=== PATIENT | male | born 1960 | race Caucasian/White ===

== ENCOUNTER 2024-11-20 22:58 | Inpatient (IN) | payer OTHER, SELFPAY ==
[2024-11-20] VITALS (8 sets, daily range): BP systolic 140–163; BP diastolic 97–108; BMI 26.7
[2024-11-20 21:09] LABS: % Basophils 1.2 % (0-2); % Eosinophils 2.9 % (0-6); % Immature Granulocytes 0.2 % (0-0.5); % Lymphocytes 26.2 % (20.5-51.1); % Monocytes 9.8 % (1.7-9.3); % Neutrophils 59.7 % (42.2-75.2); Absolute Basophils 0.1 10^3/uL (0-0.2); Absolute Eosinophils 0.2 10^3/uL (0-0.7); Absolute Lymphocytes 2.2 10^3/uL (1.2-3.4); Absolute Monocytes 0.8 10^3/uL (0.1-0.6); Hematocrit 43.7 % (39.0-52.0); Hemoglobin 14.4 g/dL (13.0-18.0); Mean Corpuscular Hgb 30.8 pg (27.0-31.0); Mean Corpuscular Volume 93.6 fL (80.0-94.0); Mean Platelet Volume 9.5 fL (7.4-10.4); Nucleated Red Blood Cells % 0 % (-); Platelet Count 232 10^3/uL (130-400); Red Blood Cell Count 4.67 10^6/uL (4.70-6.10); Red Cell Dist. Width 14.9 % (11.5-14.5); White Blood Cell Count 8.4 10^3/uL (4.8-10.8)
[2024-11-20 21:26] LABS: ALT (SGPT) 55 U/L (0-50); AST (SGOT) 38 U/L (17-59); Albumin 3.7 g/dl (3.5-5.0); Alkaline Phosphatase 130 U/L (38-126); Blood Urea Nitrogen 33 mg/dl (9-20); Calcium 8.9 mg/dl (8.4-10.2); Carbon Dioxide 19 mmol/L (22-30); Chloride 111 mmol/L (98-107); Estimated Creatinine Clearance 54 ml/min; Glucose 139 mg/dl (70-99); Sodium 139 mmol/L (135-145); Total Bilirubin 0.8 mg/dl (0.2-1.3); Total Protein 6.3 g/dl (6.3-8.2); eGFR 56.48
[2024-11-20 21:33] LABS: NT-proBNP 5990 pg/ml
[2024-11-20] MEDS: NITROSTAT (SUBLINGUAL) 0.4 MG SL (21:42)
[2024-11-20] MEDS: LASIX 40 MG IV (21:43)
--- NOTE | 2024-11-20 22:20 | ED.GENMED ---
History of Present Illness
General
Chief Complaint: Swelling
Source: patient
Time Seen by Provider: 11/20/24 20:32
History of Present Illness
History of Present Illness:
64-year-old male with a history of DVT, hypertension who presents with significant lower extremity swelling. Patient states that has been progressive over last few weeks but is been feel little short of breath as well. He does admit that with
exertion he is felt short of breath. Admits that he has not taken his blood pressure medications in several years. He states his blood pressure was the same whether he took it or did not take it so he just stopped it. In addition, he had a
history of a DVT and stopped taking a blood thinner. Patient admits that he really has not seen his doctor in some time either. He does smoke. He recently got a call back to work. Patient states his legs are hurting because how swollen they are
Past History
Past History
ED Past Medical History: GERD, HTN, Psychiatric (Anxiety) and Other (DVT, cataracts)
ED Past Surgical History: None
Social History
Tobacco: Smoker
Alcohol: Daily
Drug: None
Living: with family
Phy Exam
Physical Exam
Physical Exam:
CONSTITUTIONAL Patient alert and oriented to person, place and time. Well-appearing. Vital signs reviewed.
HEAD atraumatic, normocephalic.
EYES eyelids normal to inspection, Extraocular muscles intact, Conjunctiva normal, Sclera normal.
NECK normal range of motion, Trachea midline, no jugular venous distention.
RESPIRATORY CHEST No respiratory distress noted, Chest expansion equal, Bilateral breath sounds clear.
CARDIOVASCULAR regular and tachycardic, Heart sounds normal.
ABDOMEN abdomen nontender, Bowel sounds normal. No distention.
BACK normal inspection, no obvious deformities
UPPER EXTREMITY range of motion normal, Motor strength normal, no cyanosis, no edema.
LOWER EXTREMITY range of motion normal, Motor strength normal, no cyanosis, significant edema to the mid thigh bilaterally. Right slightly greater than left
NEURO Speech normal, No focal motor deficits, [place] coma scale 15, Memory normal, Cranial Nerves intact to screening exam.
SKIN skin warm, dry, and normal in color.
Scores
Heart Failure Risk
Heart Failure Risk Score: Yes
History of Stroke or TIA: No
History of intubation for respiratory distress: No
Heart rate on ED arrival >/= 110: No
SaO2 <90% on arrival on room air: No
HR >/=110 during 3min walk test (or too ill to perform test): Yes
ECG has acute ischemic changes: No
Urea >/=12mmol/L (BUN 33.6mg/dL): No
Serum CO2>/=35mmol/L: No
Troponin I or T elevated to AR Level (0.4mg/dL): No
NT-proBNP >/=5,000ng/L (5,000pg/ml): Yes
HF Risk Score: 3
Admission Status: HIGH RISK 15.9% Consider SNF treatment or admission to hospital
Course
Orders/Labs/Results
Orders:
Orders
11/20/24 20:15
Electrocardiogram (*1) Urgent
Reason for Study: Shortness of Breath
EKG- Treatment ONCE
11/20/24 20:53
CR Chest - 2 Views Urgent
Comment:
Reason For Exam: sob, LE edema
11/20/24 20:57
Complete Blood Count/With Diff Urgent
Comprehensive Metabolic Panel Urgent
Pro-BNP [NT-proBNP] Urgent
Troponin I Urgent
11/20/24 21:37
Furosemide [Lasix] 40 mg IV NOW STA
Nitroglycerin Sublingual [Nitrostat (Sublingual)] 0.4 mg SL NOW STA
11/20/24 22:17
Nitroglycerin 100 mg/250 ml [Nitroglycerin Premix] 100 mg in 250 ml IV NOW
Initial dose in mcg/min, then titrate:: 20
Titrate to keep:: SBP < 160 mmHg
Titrate by mcg/min:: 5 mcg/min, may increase by 10 mcg/min if dose > 20 mcg/min
Frequency of titrations (minutes):: every 3-5 minutes
Maximum dose in mcg/min:: 200
Begin to taper infusion when:: Remained at goal for 2hrs
Taper by mcg/min:: 5 mcg/min
Frequency of taper (minutes) if patient maintains goal:: 30
Taper to off?: Yes
If infusion off & no longer maintaining goal:: Contact Provider
11/20/24 22:30
US Periph Venous LOWER Ext Ezequiel Urgent
Comment:
Reason For Exam: LE edema, h/o DVT off meds
11/20/24 22:48
Admit/Transfer Patient As Directed
Co-Sign Provider:
Level of Care: Inpatient admission
Assign to:: IVU
Physician / Group: aguila
Diagnosis: acute chf exacerbation
Reason for Hospitalization: acute chf exacerbation
Expected length of stay greater than two midnights?: Yes
ELOS- Estimated Length of Stay in days: 2
I certify the patient meets the requirements for IP care: Yes
PRN Pain Medication Management As Directed
May give lesser potent ordered pain med per pt: Yes
preference::
Protocol:: Medication orders for pain may be administered in a
manner that supports deferring to patient preference
when the pt is:
- Requesting an ordered lesser potent pain medication.
Least to most potent pain medications are defined
as: acetaminophen < NSAID < tramadol < opioids
(morphine, oxycodone, hydromorphone).
- Requesting a lesser dose of the same medication IF
ORDERED.
- Requesting a less intrusive route of administration
if both routes are prescribed by the provider (PO <
IV).
11/20/24 22:49
Code Status As Directed
Resuscitation Status: Full Code
11/20/24 23:00
Flush (0.9% Sodium Chloride) [Flush (Nss)] See Dose Instructions IV PER PROTOCOL
11/21/24 01:40
Echo 2D MMode Color/Doppler Routine
Reason for Study: chf
CARDIOLOGY CONSULT Routine
Consulting Provider: Javed Loomis
Was physician already notified: No
Reason for consult: chf
Consult Notification Routine
Specialty to Notify: Cardiology
Date consulting provider notified: 11/21/24
Time consulting provider notified: 07:10
Notified:: Provider
Activity As Directed
Activity Level: As Tolerated
Vital Signs As Directed
Frequency: Per unit guidelines
DX Deep Vein Thrombosis Video Routine
11/21/24 03:35
Complete Blood Count/With Diff IN AM
Comprehensive Metabolic Panel IN AM
D-Dimer Routine
Troponin I Q6H
11/21/24 Breakfast
Cholesterol Lowering
At Your Request: Full Participation
Cholesterol Lowering: Sodium, 2 Gram
11/21/24 07:29
Troponin I Q6H
11/21/24 08:00
Furosemide [Lasix] 40 mg IV DAILY
11/21/24 16:47
Troponin I Q6H
11/21/24 22:34
Troponin I Q6H
Abnormal Lab Results
11/20/24
20:57
RBC 4.67 L 10^6/uL
(4.70-6.10)
RDW 14.9 H %
(11.5-14.5)
Absolute Monos (auto) 0.8 H 10^3/uL
(0.1-0.6)
Monocytes % 9.8 H %
(1.7-9.3)
Chloride 111 H mmol/L
(98-107)
Carbon Dioxide 19 L mmol/L
(22-30)
BUN 33 H mg/dl
(9-20)
Creatinine 1.4 H mg/dL
(0.7-1.3)
Glucose 139 H mg/dl
(70-99)
ALT 55 H U/L
(0-50)
Alkaline Phosphatase 130 H U/L
(38-126)
Troponin I 0.050 H* ng/ml
11/20/24 20:57
11/20/24 20:57
Vital Signs
Initial and Last Documented VS:
Initial Vital Signs
Temp Pulse Resp BP Pulse Ox
98.7 F 122 38 140/100 100
11/20/24 20:22 11/20/24 20:22 11/20/24 20:22 11/20/24 20:22 11/20/24 20:22
Last Documented Vital Signs
Temp Pulse Resp BP Pulse Ox
98.2 F 94 18 120/68 94
11/25/24 15:31 11/25/24 15:18 11/25/24 15:31 11/25/24 15:20 11/25/24 15:31
MDM/Problems Addressed
MDM/Problems Addressed:
Acute congestive heart failure, cardiomyopathy, uncontrolled hypertension, acute kidney injury
*Radiology
Radiology exam reviewed: preliminary read by ED provider (CHF)
*Pulse Oximetry
Patient hypoxic: no
*EKG
Interpreted by ED Provider?: Yes
Interpretation: abnormal
Rate: tachycardiac
Rhythm: sinus
[place]: normal axis
Ischemia: T-wave inversion
*Transport Aircrewman Interpretation
Rate: tachycardiac
Interpretation: abnormal
Rhythm: sinus
*Critical Care Note
Total Time (30-74mins, 75-104mins- exclusive of procedures): 40 minutes
Data Reviewed
Source: patient
Prescriptions/Medications Considered But Not Given:
Consider restarting Eliquis but will check for DVT.
Patient Management
Discussion with other providers: Hospitalist
Escalation/DeEscalation of care consider admission/obs:
Patient presents clearly with acute decompensated heart failure. Enlarged cardiac silhouette on chest x-ray. Legs are significantly edematous. Obvious we should also consider DVT versus PE but I do strongly suspect that his acute issue is related
to CHF. Will coordinate care with hospitalist Re: Lower extremity ultrasound versus D-dimer versus CTA
Update Note
Update Note:
DVT scan positive. Certainly has CHF but now concern for PE. Check CTA and initiate heparin. Hospitalist made aware
ED Attending Note
-
Portions of this chart may have been created with voice recognition software.� Occasional wrong word or��sound alike� substitutions may have occurred due to the inherent limitations of voice recognition software.
Discharge Plan
Departure
Patient Disposition: Admit
Date of Disposition: 11/20/24
Time of Disposition: 22:25
Admit to: Telemetry
Presentation/result/management discussed w/ accepting MD/DO: Hospitalist
Discharge Problem:
Acute CHF (congestive heart failure), Acute kidney injury, Uncontrolled hypertension, Deep vein thrombosis (DVT) of both lower extremities
Interventions
Interventions:
*Risk Screen - Suicide Last Done: 11/20/24 20:22
*General Assessment Last Done: 11/20/24 20:22
*Neglect/Abuse Screening Last Done: 11/20/24 20:22
*ED- Fall Risk Assessment Last Done: 11/20/24 20:22
*ED COVID-19 Vaccine History Last Done: 11/20/24 20:22
*Nursing Disposition Last Done: 11/21/24 01:40
ED- Cardiac Assessment Last Done: 11/20/24 20:47
ED- Pulmonary Assessment Last Done: 11/20/24 20:47
ED-Skin Assessment Last Done: 11/20/24 20:47
Discharge Date and Time
Discharge Date/Time: 11/21/24 01:40
--- NOTE | 2024-11-20 22:53 | HPS.HSE ---
Family Physician
-
Family Physician: Rupert Shanks
Chief Complaint
-
shortness of breath
History of Present Illness
64-year-old male past medical history of DVT, hypertension, anxiety, cataracts, GERD, presenting with significant lower extremity edema with pain in his legs. This has been progressive over the past several weeks as well as short of breath with
exertion. He has not taken his blood pressure medications in several years because he did not know any difference with taking it. He had a history of DVT in the past and stopped taking his blood thinner. He has not seen a doctor in some time. He
does smoke. Drinks alcohol occasionally.
He was hit by a softball many years ago and has chronic pain in his chest which is unchanged.
Medical History
Past Medical History
Past Medical History: Reports Other (DVT, hypertension, anxiety, cataracts, GERD,)
Past Surgical History: Reports None
Social History
Tobacco: Smoker
Alcohol: Occasional
Drug: None
Family History
Family History: Not pertinent
Allergies / Home Medications
Allergies reflects when Allergies were last updated in [facility].
Home Medications with original date entered in [facility]
Allergy/Medication List:
Allergies
Allergy/AdvReac Type Severity Reaction Status Date / Time
No Known Allergies Allergy Verified 02/04/18 09:59
Home Medications
No Meds [No Current Medications] 11/20/24
Review of Systems
-
History Source: Patient
A 12 point ROS was completed and negative except as noted: Yes
Constitutional: Reports No Symptoms
EENT: Reports No Symptoms
Respiratory: Reports See HPI
Cardiac: Reports See HPI
Abdomen/GI: Reports No Symptoms
: Reports No Symptoms
Musculoskeletal: Reports No Symptoms
Skin: Reports No Symptoms
Neurological: Reports No Symptoms
Endocrine: Reports No Symptoms
Hematologic/Lymphatic: Reports No Symptoms
Psych: Reports No Symptoms
Physical Exam
Vital Signs
Vital Signs
Temp Pulse Resp BP Pulse Ox
98.7 F 106 24 149/107 97
11/20/24 20:22 11/20/24 22:47 11/20/24 22:47 11/20/24 22:32 11/20/24 22:15
Physical Exam
General: Well Developed, Well Nourished and No Apparent Distress
HEENT: NormoCephalic, Moist mucous membranes and Atraumatic
Respiratory: Clear
Cardiac: S1/S2, Regular Rhythm and Peripheral Edema; No Murmur or Rub
GI: Soft, Non Tender, Non Distended and Normal Bowel Sounds; No Organomegaly
Rectal: Deferred by Provider
Musculoskeletal: No Clubbing, No Cyanosis and No Edema
Skin: No Rash
Neuro: Nonfocal/grossly intact
Laboratory Results
-
11/20/24 20:57
11/20/24 20:57
Laboratory Results
Total Bilirubin 0.8 mg/dl (0.2-1.3) 11/20/24 20:57
AST 38 U/L (17-59) 11/20/24 20:57
ALT 55 U/L (0-50) H 11/20/24 20:57
Alkaline Phosphatase 130 U/L (38-126) H 11/20/24 20:57
Troponin I 0.050 ng/ml H* 11/20/24 20:57
Data Reviewed
-
Lab Data: Labs Reviewed by me
Old Records: Reviewed
Impression/Plan
-
IMPRESSION:
PLAN:
# Acute CHF exacerbation
# Uncontrolled hypertension
-Cardiac BNP of 6000
-Chest x-ray shows pulmonary edema
-Check I's and O's, daily weight
-40 IV Lasix daily
-Nitroglycerin drip to be started
-Check echo
-Consider checking CT PE to evaluate for pulmonary embolism, check D-dimer
-Cardiology consulted
# Nonischemic myocardial injury
-Troponin 0.05
-EKG shows sinus tachycardia, ST depressions in lateral leads
-Trend troponins
# DYLON could be cardiorenal versus CKD
-Creatinine of 1.4, no previous
-Monitor with diuresis
# Bilateral lower extremity edema
-Check venous ultrasound
History of DVT
Smoker
Essential hypertension
-Noncompliant with medication
Anxiety
Cataracts
GERD
Full code
DVT prophylaxis�heparin
Cardiac diet
[2024-11-20] MEDS: NITROGLYCERIN PREMIX 250 IV (23:29)
[2024-11-20] MEDS: FLUSH (NSS) 1 FLUSH IV (23:35)
[2024-11-21] VITALS (24 sets, daily range): BP systolic 120–158; BP diastolic 77–112; BMI 25.7
[2024-11-21 00:59] LABS: APTT 29.8 Sec (23.4-35.0)
[2024-11-21] MEDS: HEPARIN 6600 UNITS IV (01:13)
[2024-11-21] MEDS: HEPARIN 25000 UNITS/250 ML IV ×2 (01:14→22:34)
--- NOTE | 2024-11-21 02:39 | PTCARENOTE ---
Patient received from ED, report given from ED RN. Received pt on Heparin gtt and nitroglycerin gtt. BP 154/98. Pt AAOx3, KALISPEL, agitated at times. Pt states 'why do you need to know all of this' during assessment questions. Pt not very receptive to
care or education regarding plan of care. Pt also states he 'has not seen a doctor in years'. Pt in sinus tach HR 115. +2 edema to b/l LE. Pt complaining of pain in his legs as well as back. Pt denies chest pain or SOB. Admission and assessment as
charted. Pt oriented to the unit. Call gonsales within reach.
[2024-11-21 03:47] LABS: % Eosinophils 3.1 % (0-6); % Immature Granulocytes 0.4 % (0-0.5); % Lymphocytes 21.4 % (20.5-51.1); % Monocytes 7.1 % (1.7-9.3); Absolute Basophils 0.1 10^3/uL (0-0.2); Absolute Eosinophils 0.3 10^3/uL (0-0.7); Absolute Lymphocytes 2.1 10^3/uL (1.2-3.4); Absolute Monocytes 0.7 10^3/uL (0.1-0.6); Absolute Neutrophils 6.6 10^3/uL (1.4-6.5); Hematocrit 42.3 % (39.0-52.0); Hemoglobin 14.3 g/dL (13.0-18.0); Mean Corp Hgb Conc. 33.8 g/dL (33.0-37.0); Mean Corpuscular Hgb 30.8 pg (27.0-31.0); Mean Platelet Volume 9.6 fL (7.4-10.4); Nucleated Red Blood Cells % 0 % (-); Platelet Count 225 10^3/uL (130-400); Red Blood Cell Count 4.65 10^6/uL (4.70-6.10); Red Cell Dist. Width 14.7 % (11.5-14.5); White Blood Cell Count 9.8 10^3/uL (4.8-10.8)
[2024-11-21] MEDS: MORPHINE SULFATE 1 MG IV (03:58)
[2024-11-21 04:01] LABS: D-Dimer 4.61 ug/mlFEU (0.00-0.50)
[2024-11-21 04:08] LABS: Troponin I 0.046 ng/ml
--- NOTE | 2024-11-21 04:09 | PTCARENOTE ---
Patient attempting to get out of the bed stating 'I just need to stand up!', pt became increasingly agitated. Pt also states that he 'feels restricted' and attempted to pull off SpO2 pulse oximetry. After some education and redirection pt sat back
in the bed. Pt still very restless. Pt states that he has pain in his legs and back. SANTA Casanova made aware and placed an order for morphine for pain.
--- NOTE | 2024-11-21 04:51 | PTCARENOTE ---
Patient having periods of apnea and is orthopneic. Sat the pt up and once pt fell asleep became apneic. SpO2 dropped to 85%. SANTA Casanova made aware. Order or O2. Pt placed on 3L NC.
[2024-11-21 05:48] LABS: ALT (SGPT) 54 U/L (0-50); AST (SGOT) 39 U/L (17-59); Albumin 3.8 g/dl (3.5-5.0); Alkaline Phosphatase 107 U/L (38-126); Blood Urea Nitrogen 30 mg/dl (9-20); Carbon Dioxide 22 mmol/L (22-30); Chloride 109 mmol/L (98-107); Estimated Creatinine Clearance 56 ml/min; Glucose 173 mg/dl (70-99); Potassium 3.6 mmol/L (3.5-5.1); Sodium 142 mmol/L (135-145); Total Bilirubin 1.3 mg/dl (0.2-1.3); Total Protein 6.4 g/dl (6.3-8.2); eGFR > 60.00
[2024-11-21 08:02] LABS: Troponin I 0.053 ng/ml
[2024-11-21 08:13] LABS: APTT > 200.0 Sec (23.4-35.0)
--- NOTE | 2024-11-21 08:30 | PTCARENOTE ---
PTT >200. Heparin drip on hold for 2 hours and provider notified as per protocol. Patient alert and oriented, very hard of hearing. Patient has only right hearing aide.
Nitreo drip infusing at 10mcg. VS stable. Will continue to monitor frequently.
[2024-11-21] MEDS: LASIX 40 MG IV ×2 (09:46→17:36)
[2024-11-21] MEDS: FLUSH (NSS) 1 FLUSH IV ×2 (09:47→17:37)
--- NOTE | 2024-11-21 10:48 | CON.CAR ---
Addendum entered and electronically signed by Shun Reyes DO 11/22/24 06:29:
I saw and examined the patient 10:45 AM 11/21/2024.
The Bridal Consultant's note was reviewed and I agree with the note.
Comment:
Plan:
Evidence of HF and responding to IV lasix diuresis
Monitor Is and Os, daily wts and cr.
Now with echo with new CM EF 15-20%
Cont IV diuresis and pt to undergo right and left heart cath November 25.
Smoking and alcohol cessation a must
Cont IV Heparin, may need mcc anticoagulation with recurrent nonocclusive DVT
Check lipids
Addendum entered and electronically signed by Lety Curiel PA-C 11/21/24 16:44:
Return to discuss results of echocardiogram with patient this afternoon. EF by echocardiogram 15 to 20% with moderate MR. We discussed plan for IV diuresis through weekend with plan for left and right heart cath tentatively Friday 11/24. He asked
that I call his to update her. I called but no answer. Will attempt to update her again tomorrow. Discussed with nursing
Original Note:
Consultation
Consultation Request
Date/Time Consultation Performed: 11/21/24
Requesting Provider: Dr. Galarza
Performing Provider: Lety Curiel PA-C for Dr. Reyes
Reason for Consultation: CHF
Medical History
-
Chief Complaint: LE edema
History of Present Illness:
Patient is a 64 yo M with PMH of LLE DVT, HTN who presented to with complaints of progressive B/L LE edema. He reports he has not seen a doctor in some time and stopped taking his BP medication several years ago. He had been on OAC for past DVT
however this was stopped several years ago at direction of physician. He continues to smoke. He reports prior 'significant drinking' however has cut back in recent years. Denies CP. ProBNP 5990. Cardiology consulted for evaluation of acute CHF.
PMH:
History of LLE DVT
HTN
Former ETOH abuse
Ongoing tobacco use
CAHUILLA
Past Medical History
Past Medical History: Other (in HPI)
Social History
Tobacco: Smoker
Alcohol: Occasional
Personal:
Living: With Family
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
Allergies / Home Medications
Allergy/AdvReac Type Severity Reaction Status Date / Time
No Known Allergies Allergy Verified 02/04/18 09:59
�Medication �Instructions �Recorded �Confirmed �Type
No Meds [No Current Medications] 11/20/24 11/20/24 History
Review of Systems
-
History Source: Patient
All other systems: Negative unless noted
Physical Exam
Vital Signs
Temp Pulse Resp BP Pulse Ox
98.4 F 112 24 154/107 95
11/21/24 07:16 11/21/24 08:00 11/21/24 08:00 11/21/24 08:00 11/21/24 08:00
Lab Results
11/21/24 03:35
11/21/24 03:35
Troponin I 0.053 ng/ml H* 11/21/24 07:29
Xym-O-Chqqwgkqkyy Pept 5990 pg/ml 11/20/24 20:57
Physical Exam
General: No Apparent Distress, Comfortable and Other (CAHUILLA)
HEENT: Normocephalic, Anicteric and Moist Mucous Membranes
Respiratory: Clear (anterolaterally) and Non Labored Respirations
Cardiac: S1/S2, Regular Rhythm and Other (tachy)
GI: Soft, Non Tender, Non Distended and Normal Bowel Sounds
Musculoskeletal: No Clubbing, No Cyanosis and Edema (2+ of B/L LE)
Skin: Warm and Dry
Neuro: AO x 3
Impression / Plan
-
Primary Leather Tooler: none prior to admission
Assessment:
Presentation with B/L LE edema
Nonocclusive B/L LE DVT
Acute CHF, unknown type
Moderate right and small left pleural effusions
Renal insufficiency
Elevated troponin
Sinus tachycardia
History of LLE DVT
HTN, uncontrolled
Former ETOH abuse
Ongoing tobacco use
CAHUILLA
History of noncompliance
Echocardiogram 02/07/2018: EF 60 to 65%, mild AR
ECHO 11/21/24: pending
Plan:
-Patient presented with bilateral lower extremity edema.
-By peripheral vascular ultrasound with evidence of nonocclusive bilateral lower extremity DVT in setting of prior DVT. Continue IV heparin per protocol. Suspect will need lifelong anticoagulation as appears to be hypercoagulable
-proBNP 5990. Chest CT without evidence of PE, but with moderate right and small left pleural effusions and mild pulmonary edema. Continue IV Lasix, dose escalated to 40 IV twice daily today. Creatinine improving, 1.3, baseline unknown
-CHF education
-Check echo, last from 2018 with results as above
-Troponins relatively flat in 0.04�0.05 range. No chest pain. EKG sinus tachycardia with evidence of lateral ST inversion/mild depression. Would plan for ischemic evaluation, likely prior to discharge
-Add aspirin 324 today and 81 mg daily thereafter
-Check lipid panel in AM
-Add Toprol 25 mg daily. Will attempt to wean off of IV nitro today
-Patient concerned about cost of medications, however states he will be compliant with what we tell him to take. Cost of SGLT2 inhibitor may be prohibitive
-Discussed tobacco and alcohol cessation
-Discussed with nursing
Data Reviewed
-
EKG: Tracing Personally Visualized and interpreted
CT Scan: Report Reviewed by me
Ultrasound: Report Reviewed by me
Medical Tests (Nuc Med, Echo etc): Report Reviewed by me
Labs: Labs Reviewed by me
Old Records: Reviewed
[2024-11-21] MEDS: LOW STRENGTH ASPIRIN 324 MG PO (12:36)
[2024-11-21] MEDS: TOPROL XL 25 MG PO (12:39)
--- NOTE | 2024-11-21 13:24 | CM ---
CM following re: discharge planning.
Reviewed pt's chart, met with pt.
Pt is a 64 year old very [place] male with hearing aids, admitted with primary dx of Acute CHF exacerbation.
Pt reports he lives with spouse and a dog in a 2SH, 2 steps to enter, has supportive family. pt described himself as independent in all areas [employer], drives, works.
PCP: Rupert Shanks
Pharm[facility]: [facility]
D/c plan: home with anticipated no needs.
CM will follow with discharge plan updates as hospitalization progresses
--- NOTE | 2024-11-21 14:48 | W.PN.HOSP.TC ---
Today's Communication/Plan
-
hep ggt
nitro ggt
lasix
toprol
l/rhc Monday
Assessment / Plan
Assessment / Plan
Physical Exam
General: Well Developed, Well Nourished and No Apparent Distress
HEENT: NormoCephalic, Moist mucous membranes and Atraumatic
Respiratory: Clear
Cardiac: S1/S2, Regular Rhythm and Peripheral Edema; No Murmur or Rub
GI: Soft, Non Tender, Non Distended and Normal Bowel Sounds; No Organomegaly
Rectal: Deferred by Provider
Musculoskeletal: No Clubbing, No Cyanosis and No Edema
Skin: No Rash
Neuro: Nonfocal/grossly intact
# Acute CHF exacerbation
#Acute HFrEF and HFpEF
-Cont Diuresis
-LHC/RHC tentatively Monday
-Toprol
- Nitro ggt
-cards recs
# Uncontrolled hypertension
-40 IV Lasix daily
-Nitroglycerin drip to be started
-Toprol
# Nonischemic myocardial injury
-Troponin 0.05
-EKG shows sinus tachycardia, ST depressions in lateral leads
-L/RHC Monday
# DYLON v CKD
-Creatinine of 1.4, no previous
-Monitor with diuresis
# LE DVT
-on Hep ggt
-switch to NOAC once cleared by Cards
History of DVT
Smoker
Anxiety
Cataracts
GERD
Full code
DVT prophylaxis�heparin
Cardiac diet
Anticipated Discharge: > 48 hours
Subjective/Interval History
-
Date of Service: November 21, 2024
feels better today
Objective Data
-
Labs:
Laboratory Results
11/21/24 11/21/24 11/21/24
03:35 07:29 14:20
WBC 9.8
Hgb 14.3
Hct 42.3
Plt Count 225
APTT > 200.0 H* Cancelled
Sodium 142
Potassium 3.6
Chloride 109 H
Carbon Dioxide 22
BUN 30 H
Creatinine 1.3
Glucose 173 H
Calcium 9.0
Total Bilirubin 1.3
AST 39
ALT 54 H
Alkaline Phosphatase 107
11/21/24
17:00
WBC
Hgb
Hct
Plt Count
APTT Pending
Sodium
Potassium
Chloride
Carbon Dioxide
BUN
Creatinine
Glucose
Calcium
Total Bilirubin
AST
ALT
Alkaline Phosphatase
Vital Signs:
Vital Signs
Temp Pulse Resp BP Pulse Ox
97.3 F 119 21 144/90 94
11/21/24 11:37 11/21/24 10:00 11/21/24 10:00 11/21/24 10:00 11/21/24 10:00
I&O
11/20/24 11/21/24 11/22/24
06:59 06:59 06:59
Intake Total 875 / 875
Output Total 1200 / 1200 2610 / 2610
Balance -1200 / -1200 -1735 / -1735
Review of Systems
-
History Source: Patient
All other systems: Not reviewed unless documented
Data Reviewed
-
Diagnostic Radiology: Report Reviewed by me
CT Scan: Report Reviewed by me
Ultrasound: Report Reviewed by me
Medical Tests (Nuc Med, Echo etc): Report Reviewed by me
Labs: Labs Reviewed by me
[2024-11-21 17:26] LABS: Troponin I 0.053 ng/ml
[2024-11-21 17:32] LABS: APTT 64.4 Sec (23.4-35.0)
[2024-11-21] MEDS: HEPARIN 3300 UNITS IV (17:51)
--- NOTE | 2024-11-21 18:53 | PTCARENOTE ---
Patient using urinal independently. Nitro drip at 10 mcg/hr, heparin drip infusing at 1400units/hr. Next PTT at 2355. VS stable. BP's 120-140's/70-80's.
[2024-11-21] MEDS: TYLENOL 650 MG PO (21:35)
--- NOTE | 2024-11-21 21:56 | PTCARENOTE ---
Pt drowsy, extremely ZUNI. Nitro gtt stopped per the worklist. BP at goal. Voiding via urinal. 1L NC in place, dry cough present. Pt having apnea when asleep; Sp02 decreases to 83-84% but will quickly come up to mid 90s. Patient c/o leg cramping/body
aches. SANTA Casanova aware and ordered tylenol x1. Call gonsales and tray table within reach.
[2024-11-22] VITALS (17 sets, daily range): BP systolic 95–145; BP diastolic 66–103; BMI 23.9
[2024-11-22 00:41] LABS: APTT 198.8 Sec (23.4-35.0)
[2024-11-22 00:59] LABS: Troponin I 0.047 ng/ml
[2024-11-22 05:06] LABS: ALT (SGPT) 47 U/L (0-50); AST (SGOT) 30 U/L (17-59); Albumin 3.5 g/dl (3.5-5.0); Alkaline Phosphatase 98 U/L (38-126); Blood Urea Nitrogen 30 mg/dl (9-20); Calcium 9.5 mg/dl (8.4-10.2); Carbon Dioxide 31 mmol/L (22-30); Chloride 103 mmol/L (98-107); Estimated Creatinine Clearance 61 ml/min; Glucose 105 mg/dl (70-99); HDL Cholesterol 37 mg/dl; LDL Cholesterol, Calculated 74 mg/dl; Potassium 3.4 mmol/L (3.5-5.1); Sodium 143 mmol/L (135-145); Total Bilirubin 1.2 mg/dl (0.2-1.3); Total Cholesterol 122 mg/dl (50-199); Total Protein 6.3 g/dl (6.3-8.2); Triglyceride 59 mg/dl (10-149); Very Low Density Lipoprotein 11 mg/dl (0-30); eGFR > 60.00
[2024-11-22 05:15] LABS: Magnesium 1.7 mg/dl (1.6-2.3)
[2024-11-22] MEDS: LASIX 40 MG IV ×2 (08:04→16:34)
[2024-11-22] MEDS: TOPROL XL 25 MG PO (08:07)
[2024-11-22] MEDS: LOW STRENGTH ASPIRIN 81 MG PO (08:07)
[2024-11-22 09:05] LABS: APTT 44.8 Sec (23.4-35.0)
--- NOTE | 2024-11-22 09:27 | W.PN.CARDCBS ---
Addendum entered and electronically signed by Rafita Orozco MD 11/22/24 11:42:
I saw and examined the patient.
The Railroad Carman's note was reviewed and I agree with the note.
Comment:
GEN: No distress, awake, Ox3
HEENT: supple, anicteric, mmm
LUNGS: CTA, no wheezes/rales
CV: Reg, S1/S2, / syst LSB, S3+
ABD: soft, BS+, NT/ND
EXT: No edema
NEURO: Gross non-focal
SKIN: No rash
Plan:
Has diuresed very well. Creatinine stable at 1.2. Replete potassium.
Will proceed with left and right heart catheterization today.
Continue aspirin, IV heparin, start Toprol and add losartan.
Will continue IV Lasix. He has diuresed 15 to 20 pounds.
Original Note:
Today's Communication / Plan
-
continue IV diuresis
transition toprol to coreg and add losartan. stop IV nitro
K repletion ordered
plan for L/RHC Saturday 11/25
ok for transfer to IVU
Impression / Plan
-
Primary Doctor Of Naprapathy: none prior to admission
Assessment:
Presentation with B/L LE edema
Nonocclusive B/L LE DVT
Acute HFrEF
Moderate right and small left pleural effusions
Renal insufficiency
Elevated troponin
Sinus tachycardia
History of LLE DVT
HTN, uncontrolled
Former ETOH abuse
Ongoing tobacco use
[place]
History of noncompliance
Echocardiogram 02/07/2018: EF 60 to 65%, mild AR
ECHO 11/21/24: EF 15 to 20%, mildly dilated LV, global hypokinesis, mild concentric LVH, stage II diastolic dysfunction, moderate MR, mild AR, mild TR, PAP 50 to 55 mmHg
Plan:
-Patient presented with bilateral lower extremity edema.
-By peripheral vascular ultrasound with evidence of nonocclusive bilateral lower extremity DVT in setting of prior DVT. Continue IV heparin per protocol. Suspect will need lifelong anticoagulation as appears to be hypercoagulable
-proBNP 5990. Chest CT without evidence of PE, but with moderate right and small left pleural effusions and mild pulmonary edema. Continue IV Lasix 40mg BID, with grossly negative I&O overnight. Creatinine improving, 1.2, baseline unknown
-CHF education
-Echo with EF 15 to 20% and moderate MR, which could be volume related
-Troponins relatively flat in 0.04�0.05 range. No chest pain. EKG sinus tachycardia with evidence of lateral ST inversion/mild depression.
-tentatively planned for L/RHC on Monday11/25/24
-continue asa
-LDL 74. consider addition of statin pending results of cath
-GDMT of CHF/CM as able. As EF significantly reduced and remains with elevated BPs, transition toprol to coreg. will add losartan 25mg daily. stop IV nitro. Patient concerned about cost of medications, however states he will be compliant with what
we tell him to take. Cost of SGLT2 inhibitor may be prohibitive
-Discussed tobacco and alcohol cessation 11/21
-concern as well for underlying sleep apnea. consider for OP sleep study
-Discussed with nursing
Progress Note - Doctor Of Naprapathy
Subjective
Date of Service: November 22, 2024
resting comfortably.
Objective
Labs:
11/21/24 03:35
11/22/24 04:14
Labs
Hgb 14.3 g/dL (13.0-18.0) 11/21/24 03:35
Hct 42.3 % (39.0-52.0) 11/21/24 03:35
Plt Count 225 10^3/uL (130-400) 11/21/24 03:35
APTT 44.8 Sec (23.4-35.0) H 11/22/24 08:47
Sodium 143 mmol/L (135-145) 11/22/24 04:14
Potassium 3.4 mmol/L (3.5-5.1) L 11/22/24 04:14
BUN 30 mg/dl (9-20) H 11/22/24 04:14
Creatinine 1.2 mg/dL (0.7-1.3) 11/22/24 04:14
Glucose 105 mg/dl (70-99) H 11/22/24 04:14
Troponins
11/20/24 11/21/24 11/21/24
20:57 03:35 07:29
Troponin I 0.050 H* 0.046 H* 0.053 H*
11/21/24 11/22/24
16:47 00:06
Troponin I 0.053 H* 0.047 H*
Vital Signs and I&O:
Vital Signs
Temp Pulse Resp BP Pulse Ox
98 F 106 13 145/100 95
11/22/24 03:55 11/22/24 08:07 11/22/24 08:00 11/22/24 08:07 11/22/24 08:11
Vital Signs
Temp Pulse Resp BP Pulse Ox
98 F 106 13 145/100 95
11/22/24 03:55 11/22/24 08:07 11/22/24 08:00 11/22/24 08:07 11/22/24 08:11
Intake & Output
11/20/24 11/21/24 11/22/24 11/23/24
07:59 07:59 07:59 07:59
Intake Total 1745 / 1745
Output Total 1200 / 1200 5450 / 5450
Balance -1200 / -1200 -3705 / -3705
Physical Exam
Physical Exam
GEN: No distress, resting comfortably. QUILEUTE
HEENT: supple, mmm
LUNGS: CTA B/L anterolaterally, no wheezes
CV: Reg, S1/S2, no murmur
ABD: soft, BS+, NT/ND
EXT: No cyanosis, clubbing. 2+ edema of B/L LE
NEURO: Gross non-focal
SKIN: Warm, pink, dry. No rash
--- NOTE | 2024-11-22 09:41 | PTCARENOTE ---
REport to IVU nurse and update . Pt AAOx3, lungs diminished.
[2024-11-22] MEDS: COZAAR 25 MG PO ×2 (10:14→19:44)
[2024-11-22] MEDS: KCL 40 MEQ PO (10:14)
[2024-11-22] MEDS: HEPARIN 6600 UNITS IV (10:15)
[2024-11-22 13:43] LABS: ACT-LR - POC 313 Seconds (116-155)
[2024-11-22] MEDS: TYLENOL 650 MG PO ×2 (14:25→21:16)
--- NOTE | 2024-11-22 14:26 | CM ---
Chart reviewed. Patient is independent of ADLS, lives with in a split level home, 2 MONICA, 0 DME. Plan is for the patient to return home. CM to follow
--- NOTE | 2024-11-22 14:28 | CM ---
Pricing on Farxiga through the patient's [facility] [employer], ID#[id number], is $75 for a 30 day supply and $150 90 day mail order
Jardiance is $75 for a 30 day supply and $150 mail order
--- NOTE | 2024-11-22 14:30 | ITS.CL.CATH ---
Certified Forklift Operator - Catheterization
Cardiac Catheterization
Procedure Report:
LEFT HEART CATHETERIZATION
Date of Procedure: November 22, 2024
Referring: Dr. Davis Orozco
PROCEDURES:
1. Left heart catheterization with coronary and single-plane left ventriculography
2. Hemodynamic assessment of LAD with [place] Verrata wire. The iFR measured above the ischemic threshold at 0.95, 0.93, and 0.94
INDICATION: This is a 64-year-old gentleman with a past medical history notable for left lower extremity DVT who presented to [facility] with complaints of increased lower extremity edema. He continues to smoke and reported alcohol use in
the past several years and his cardiac proBNP was elevated. He is now referred for coronary angiography. He experiences no chest discomfort and is physically active.
ACCESS: Right radial artery, 6 Hungarian sheath
HEMODYNAMICS : (mmHg)
AO (s/d) : 125/78, 96
LV (s/d) : 121/14
LVEDP : 30
CORONARY FINDINGS: Mild to moderate coronary calcification
DOMINANCE: Right
LEFT MAIN: Normal
LEFT ANTERIOR DESCENDING: The LAD arises normally from the left main and runs in the anterior interventricular groove. There is a 30-40% proximal LAD stenosis just beyond the first septal regulatory compliance engineer and proximal to the first diagonal branch. The
mid to distal LAD has luminal irregularities
Ramus: Moderate caliber ramus intermedius with 50-60% mid
CIRCUMFLEX: The circumflex is a moderate caliber nondominant vessel. OM1 is a small to medium caliber vessel with a 80% proximal stenosis. The circumflex supplies a sizable bifurcating OM 2 and terminates in a small posterolateral branch
RIGHT CORONARY ARTERY: The right coronary artery is a medium caliber dominant vessel with a calcified eccentric 60% stenosis proximal to the RV marginal branch and long 60% stenosis beyond the RV marginal branch. The PDA is patent as is a small
posterolateral branch.
VENTRICULOGRAPHY: Left ventriculography is performed in an MELENDEZ projection. The digital single-plane ventricular ejection fraction is estimated at 15%. The ventricle is globally hypokinetic with the apex moving mass. There is +1 mitral
regurgitation.
HEMODYNAMIC ASSESSMENT OF THE LAD WITH A VOLCANO OMNI WIRE: The origin of the left main was cannulated with a 6 Fr JL 4 guide catheter. Intravenous heparin was administered and the ACT was followed during the procedure. Two hundred micrograms of
intracoronary nitroglycerin was given through the guide catheter. A [place] Verrata wire was advanced to the guide catheter tip and normalized to guide catheter pressure. The Verrata wire was then carefully manipulated across the stenosis in the
proximal LAD and into the mid to distal vessel where the iFR serially measured above the ischemic threshold at 0.95, 0.93, and 0.94. The Verrata wire was slowly withdrawn to the coronary guide catheter where the resting Pd/Pa measured 0.98
confirming no significant baseline drift.
SEDATION: 40 minutes of procedural sedation was utilized. An independent registered medical assistant was present to assist with and help manage the patient's level of consciousness and physiologic status.
RADIATION SUMMARY: Fluoro Time (min): 8.3, Dose (mGy): 571, DAP (Gy.cm2) : 49.4
Closure Device: TR band
CONCLUSIONS
1. LV dysfunction out of proportion to the extent of coronary artery disease. Coronary artery disease primarily involves small to medium caliber OM1 with 80% stenosis and nonobstructive coronary disease in the proximal LAD. There is moderate
coronary disease in the proximal to mid right coronary artery.
RECOMMENDATIONS
1. Guideline directed medical therapy for dilated cardiomyopathy
2. Oral anticoagulation is planned for nonobstructive lower extremity thrombus. Would consider aspirin therapy if/when oral anticoagulation for DVT is discontinued
3. High intensity statin
Copy to: Dr. Shun Reyes
--- NOTE | 2024-11-22 14:55 | W.PN.HOSP.TC ---
Today's Communication/Plan
-
hep ggt
coreg, losartan
lasix
sliding scale, f/u hgba1c
Assessment / Plan
Assessment / Plan
Physical Exam
General: Well Developed, Well Nourished and No Apparent Distress
HEENT: NormoCephalic, Moist mucous membranes and Atraumatic
Respiratory: Clear
Cardiac: S1/S2, Regular Rhythm and Peripheral Edema; No Murmur or Rub
GI: Soft, Non Tender, Non Distended and Normal Bowel Sounds; No Organomegaly
Rectal: Deferred by Provider
Musculoskeletal: No Clubbing, No Cyanosis and No Edema
Skin: No Rash
Neuro: Nonfocal/grossly intact
# Acute CHF exacerbation
#Acute HFrEF and HFpEF
-Cont Diuresis
-LHC/RHC today
-Coreg
-add losartan
-stop nitro ggt, assess response
-cards recs
# Uncontrolled hypertension
-40 IV Lasix bid
-Nitroglycerin drip to be started
-Toprol
#Hypokalemia
-monitor and replete
# Nonischemic myocardial injury
-Troponin 0.05
-EKG shows sinus tachycardia, ST depressions in lateral leads
-L/RHC - non obstructive
-consider asa once noac course completed
# DYLON v CKD
-Creatinine of 1.4, no previous
-Monitor with diuresis
# LE DVT
-on Hep ggt
-switch to NOAC once cleared by Cards
History of DVT
#?DM
-f/u a1c
-sliding scale
Smoker
Anxiety
Cataracts
GERD
Full code
DVT prophylaxis�heparin
Cardiac diet
Total time spent on today's encounter was 55 minutes which included time spent in counseling the patient/family regarding diagnosis and treatment plan as listed above, goals of care, and symptom management. Case was discussed with nursing staff,
specialists, and care coordinators/case management. All labs and imaging personally reviewed by me. Remainder the time spent in detailed review of previous records, lab data, imaging, and other medical provider documentation.
Anticipated Discharge: Today
Subjective/Interval History
-
Date of Service: November 22, 2024
for heart cath
Objective Data
-
Labs:
Laboratory Results
11/22/24 11/22/24 11/22/24
04:14 08:47 16:30
APTT 44.8 H Pending
Sodium 143
Potassium 3.4 L
Chloride 103
Carbon Dioxide 31 H
BUN 30 H
Creatinine 1.2
Glucose 105 H
Calcium 9.5
Total Bilirubin 1.2
AST 30
ALT 47
Alkaline Phosphatase 98
Vital Signs:
Vital Signs
Temp Pulse Resp BP Pulse Ox
98 F 102 16 130/91 99
11/22/24 03:55 11/22/24 14:45 11/22/24 09:00 11/22/24 14:45 11/22/24 14:45
I&O
11/21/24 11/22/24 11/23/24
06:59 06:59 06:59
Intake Total 1745 / 1745
Output Total 1200 / 1200 5450 / 5450
Balance -1200 / -1200 -3705 / -3705
Review of Systems
-
History Source: Patient
All other systems: Not reviewed unless documented
Data Reviewed
-
Diagnostic Radiology: Report Reviewed by me
CT Scan: Report Reviewed by me
Ultrasound: Report Reviewed by me
Medical Tests (Nuc Med, Echo etc): Report Reviewed by me
Labs: Labs Reviewed by me
--- NOTE | 2024-11-22 15:51 | PN.CDI ---
CDI
- -
CDI:
Physician Documentation Request
Admit Date: 11/20/24 22:58
Dear Doctor Michell,
Patient admitted for acute heart failure.
11/22 Cardiology PN: 'Acute HFrEF...ECHO 11/21/24: EF 15 to 20%, mildly dilated LV'
11/22 Hospitalist PN: 'Acute CHF exacerbation #Acute HFrEF and HFpEF -Cont Diuresis -LHC/RHC today -Coreg -add losartan -stop nitro ggt, assess response -cards recs'
Please provide further specificity regarding the most likely type of CHF you are evaluating, treating or monitoring.
Systolic
Combined systolic and diastolic
Other
Use of terms such as suspected, likely, concern for, or probable (associated with a specific diagnosis that is being evaluated, monitored, or treated as if it exists) are acceptable and can be coded in the inpatient setting, when documented at the
time of discharge.
Thank you,
Trudy Joseph RN, BSN
CDI Specialist
Available via [facility] text
Please use your independent medical judgment in providing your response.
[2024-11-22 16:33] LABS: Glucose - Point of Care 99 mg/dl (70-99)
[2024-11-22] MEDS: NICODERM TRANSDERMAL 14 MG TRANSDERM (16:35)
[2024-11-22] MEDS: NOVOLOG FLEXPEN-LOW RESISTANCE SC (16:40)
[2024-11-22] MEDS: LIPITOR 40 MG PO (17:04)
--- NOTE | 2024-11-22 18:28 | PTCARENOTE ---
~929: patient tx from IMU. Patient oriented to room and callbell system. Pt denies pain at this time. All needs met, call gonsales within reach.
~1009-9158: Patient resting in bed. VSS at this time. All needs met, call gonsales within reach. Pt made NPO for cath today.
~1230: Report given to photo lab manager. Patient transported to photo lab manager by photo lab manager team in bed.
~1415: patient returned from photo lab manager. R Radial TR band in place. Pt c/o headache at this time, PRN tylenol given.
~1600: Air start to be removed from TR band per protocol. No oozing present at this time.
~181: TR band off at this time. No oozing orhematoma present. Site soft, dressing CDI.
~2141-9908: patient resting in bed, 2L NC when asleep for possible CHRISTIAN, O2 dips to 86-88% on RA when sleeping. All needs met at this time, call gonsales within reach.
[2024-11-22] MEDS: COREG 6.25 MG PO (19:44)
[2024-11-22] MEDS: HEPARIN 25000 UNITS/250 ML IV (20:06)
[2024-11-22 20:38] LABS: Glucose - Point of Care 135 mg/dl (70-99)
[2024-11-22] MEDS: NORCO 5/325 1 TABLET PO (21:51)
[2024-11-22] MEDS: FIORICET 1 TAB PO (23:42)
[2024-11-22] MEDS: BENADRYL 25 MG IV (23:43)
[2024-11-22] MEDS: COMPAZINE 10 MG IV (23:43)
[2024-11-22] MEDS: MAGNESIUM SULFATE 102 GRAMS IV (23:54)
[2024-11-23] VITALS (7 sets, daily range): BP systolic 100–132; BP diastolic 62–90; BMI 23.8
[2024-11-23] MEDS: HEPARIN 25000 UNITS/250 ML IV (00:58)
--- NOTE | 2024-11-23 02:23 | PTCARENOTE ---
Assumed care of pt @ 2300 Pt seated at side of the bed with complaints of 8/10 Head and neck ache that has not been relieved despite- x1 [place], Tylenol and ice packs. Nicotine patch also removed from left upper arm. [place] made aware- PRN
Compazine, Benadryl and Fioricet given- pt sleeping when reassessed. SR/ ST on the monitor. R radial dressing CDI + pulse. Heparin gtt running as documented.
[2024-11-23 03:24] LABS: Hematocrit 47.8 % (39.0-52.0); Mean Corp Hgb Conc. 33.5 g/dL (33.0-37.0); Mean Corpuscular Hgb 30.8 pg (27.0-31.0); Mean Corpuscular Volume 91.9 fL (80.0-94.0); Mean Platelet Volume 9.3 fL (7.4-10.4); Platelet Count 225 10^3/uL (130-400); Red Cell Dist. Width 14.5 % (11.5-14.5); White Blood Cell Count 7.6 10^3/uL (4.8-10.8)
[2024-11-23 03:42] LABS: APTT 169.9 Sec (23.4-35.0)
[2024-11-23 03:50] LABS: ALT (SGPT) 36 U/L (0-50); AST (SGOT) 26 U/L (17-59); Albumin 3.6 g/dl (3.5-5.0); Alkaline Phosphatase 102 U/L (38-126); Blood Urea Nitrogen 33 mg/dl (9-20); Calcium 9.6 mg/dl (8.4-10.2); Carbon Dioxide 28 mmol/L (22-30); Chloride 100 mmol/L (98-107); Estimated Creatinine Clearance 61 ml/min; Glucose 127 mg/dl (70-99); Potassium 3.9 mmol/L (3.5-5.1); Sodium 138 mmol/L (135-145); Total Bilirubin 1.1 mg/dl (0.2-1.3); Total Protein 6.3 g/dl (6.3-8.2); eGFR > 60.00
--- NOTE | 2024-11-23 07:52 | W.PN.CARDCBS ---
Addendum entered and electronically signed by Shun Reyes DO 11/23/24 09:35:
I saw and examined the patient.
The Print Production Coordinator's note was reviewed and I agree with the note.
Comment:
Plan:
left cath reviewed with pt
Cont IV lasix diuresis
Cont med tx of NICM, aldactone added
With mod CAD, add Lipitor
LDL goal < 70
Cont GDMT with losartan and Coreg
LVEDP 30 mmHg, right heart not performed.
Case management to assess cost of ARNI and SGLT2 inhibitor.
Received treatment for migraines overnight
Smoking and alcohol cessation is a must
Original Note:
Today's Communication / Plan
-
Continue IV Lasix
Continue medical therapy of nonischemic cardiomyopathy - add low dose aldactone today
Add Lipitor given moderate CAD by cath
Case management to assess cost of ARNI and SGLT2
Impression / Plan
-
Primary Turbine Mechanic: none prior to admission
Assessment:
Presentation with B/L LE edema
Nonocclusive B/L LE DVT
Acute HFrEF
Moderate right and small left pleural effusions
Renal insufficiency
Elevated troponin
Sinus tachycardia
History of LLE DVT
HTN, uncontrolled
Former ETOH abuse
Ongoing tobacco use
[place]
History of noncompliance
Echocardiogram 02/07/2018: EF 60 to 65%, mild AR
ECHO 11/21/24: EF 15 to 20%, mildly dilated LV, global hypokinesis, mild concentric LVH, stage II diastolic dysfunction, moderate MR, mild AR, mild TR, PAP 50 to 55 mmHg
Plan:
-Patient presented with bilateral lower extremity edema.
-By peripheral vascular ultrasound with evidence of nonocclusive bilateral lower extremity DVT in setting of prior DVT. Continue IV heparin per protocol. Suspect will need lifelong anticoagulation as appears to be hypercoagulable
-proBNP 5990. Chest CT without evidence of PE, but with moderate right and small left pleural effusions and mild pulmonary edema. Continue IV Lasix 40mg BID, with grossly negative I&O overnight. Creatinine stable at 1.2, baseline unknown. LVEDP
by cath 11/22 was 30
-CHF education
-Echo with EF 15 to 20% and moderate MR. MR may be volume related
-Troponins relatively flat in 0.04�0.05 range. No chest pain. EKG sinus tachycardia with evidence of lateral ST inversion/mild depression. underwent LHC 11/22/24 with small to medium caliber OM1 with 80% stenosis and nonobstructive CAD in proximal
LAD with moderate disease in proximal to mid RCA. LV dysfunction is felt to be out of proportion to extent of coronary artery disease and will treat as NICM.
-continue asa
-LDL 74. add lipitor 40mg QPM given mod CAD noted by cath
-GDMT of CHF/CM as able. Continue coreg, losartan. Patient concerned about cost of medications, however states he will be compliant with what we tell him to take. Cost of SGLT2 inhibitor may be prohibitive, but will have CM check cost of entresto
and farxiga. add low dose aldactone 12.5mg daily
-Discussed tobacco and alcohol cessation 11/21
-concern as well for underlying sleep apnea. consider for OP sleep study
-will need 90 day echo to reevaluate EF
-Discussed with nursing
Progress Note - Turbine Mechanic
Subjective
Date of Service: November 23, 2024
Remains lethargic. Hard of hearing.
Objective
Labs:
11/23/24 02:56
11/23/24 02:56
Labs
Hgb 16.0 g/dL (13.0-18.0) 11/23/24 02:56
Hct 47.8 % (39.0-52.0) 11/23/24 02:56
Plt Count 225 10^3/uL (130-400) 11/23/24 02:56
APTT 169.9 Sec (23.4-35.0) H* 11/23/24 02:56
Sodium 138 mmol/L (135-145) 11/23/24 02:56
Potassium 3.9 mmol/L (3.5-5.1) 11/23/24 02:56
BUN 33 mg/dl (9-20) H 11/23/24 02:56
Creatinine 1.2 mg/dL (0.7-1.3) 11/23/24 02:56
Glucose 127 mg/dl (70-99) H 11/23/24 02:56
Troponins
11/20/24 11/21/24 11/21/24
20:57 03:35 07:29
Troponin I 0.050 H* 0.046 H* 0.053 H*
11/21/24 11/22/24
16:47 00:06
Troponin I 0.053 H* 0.047 H*
Vital Signs and I&O:
Vital Signs
Temp Pulse Resp BP Pulse Ox
97.8 F 90 18 111/76 97
11/23/24 03:40 11/23/24 03:00 11/23/24 03:40 11/23/24 02:41 11/23/24 03:40
Vital Signs
Temp Pulse Resp BP Pulse Ox
97.8 F 90 18 111/76 97
11/23/24 03:40 11/23/24 03:00 11/23/24 03:40 11/23/24 02:41 11/23/24 03:40
Intake & Output
11/20/24 11/21/24 11/22/24 11/23/24
07:59 07:59 07:59 07:59
Intake Total 1745 / 1745 480 / 480
Output Total 1200 / 1200 5450 / 5450 2074 / 2074
Balance -1200 / -1200 -3705 / -3705 -1595 / -1595
Physical Exam
Physical Exam
GEN: No distress, resting comfortably, hard of hearing
HEENT: supple, mmm
LUNGS: CTA bilaterally, no wheezes/rales
CV: Reg, S1/S2, no murmur
ABD: soft, BS+, NT/ND
EXT: No cyanosis, clubbing. 1+ edema of bilateral lower extremity
NEURO: Gross non-focal
SKIN: Warm, pink, dry. No rash
[2024-11-23] MEDS: COZAAR 25 MG PO ×2 (08:25→20:26)
[2024-11-23] MEDS: COREG 6.25 MG PO ×2 (08:26→20:26)
[2024-11-23] MEDS: LOW STRENGTH ASPIRIN 81 MG PO (08:26)
[2024-11-23] MEDS: LASIX 40 MG IV ×2 (08:26→17:54)
[2024-11-23] MEDS: NICODERM TRANSDERMAL TRANSDERM (08:47)
[2024-11-23 08:48] LABS: Glucose - Point of Care 91 mg/dl (70-99)
[2024-11-23] MEDS: NOVOLOG FLEXPEN-LOW RESISTANCE SC ×3 (08:49→18:39)
--- NOTE | 2024-11-23 09:13 | PTCARENOTE ---
pt sr on the monitor, hr in the 90s-100s, vss. pt is c/o of MALONEY/migraine symptoms throughout the night, pt now c/o of blurry vision w/ MALONEY s/s and said 'I feel like I just swam in pool w/ my eyes open.' Neuro check unchanged. Notified sherley Galarza.
Continue to monitor. No orders at this time. Heparin gtt running pre protocol, see documentation. pt educated on plan of care and pt verbalized understanding. call gonsales within reach.
[2024-11-23 09:48] LABS: Glycohemoglobin (HgbA1c) 6.4 % (4.0-5.6)
[2024-11-23] MEDS: ALDACTONE PO (11:19)
[2024-11-23 11:31] LABS: Glucose - Point of Care 140 mg/dl (70-99)
[2024-11-23 11:42] LABS: APTT 135.9 Sec (23.4-35.0)
[2024-11-23 11:51] LABS: Venous Blood Gas B.E. 9.6 mmol/L (-4 to +4); Venous Blood Gas HCO3 33.5 mmol/L (22-27); Venous Blood Gas O2 Sat % 99.4 %; Venous Blood Gas O2 Therapy ra; Venous Blood Gas pCO2 41 mmHg (35-48); Venous Blood Gas pH 7.52 (7.32-7.43); Venous Blood Gas pO2 163 mmHg (30-50)
--- NOTE | 2024-11-23 12:46 | PTCARENOTE ---
rn went to check on pt, pt is very lethargic. BG 140. BP is 100/72, hr is 96. pt wakes for a second and then falls right back to sleep. O2 was in the low 80s, while sleeping. I put 3LO2 NC on. pt very slow to respond, sternal rub to wake. notified
sherley Galarza. BW ordered and completed. CT scan of head ordered and completed. plan of care explained to sitting at bedside. call gonsales in place.
--- NOTE | 2024-11-23 14:03 | W.PN.HOSP.TC ---
Today's Communication/Plan
-
iv diuresis
asa, statin, hep ggt
ARB/pricing for ARNI, aldactone, BB
Assessment / Plan
Assessment / Plan
Physical Exam
General: Well Developed, Well Nourished and No Apparent Distress
HEENT: NormoCephalic, Moist mucous membranes and Atraumatic
Respiratory: Clear
Cardiac: S1/S2, Regular Rhythm and Peripheral Edema; No Murmur or Rub
GI: Soft, Non Tender, Non Distended and Normal Bowel Sounds; No Organomegaly
Rectal: Deferred by Provider
Musculoskeletal: No Clubbing, No Cyanosis and No Edema
Skin: No Rash
Neuro: Nonfocal/grossly intact
# Acute CHF exacerbation
#Acute HFrEF and HFpEF
-ECHO 11/21/24: EF 15 to 20%, mildly dilated LV, global hypokinesis, mild concentric LVH, stage II diastolic dysfunction, moderate MR, mild AR, mild TR, PAP 50 to 55 mmHg
-Cont Diuresis
-C 11/23�no need for coronary intervention; guideline directed medical therapy for dilated cardiomyopathy. On anticoagulation for DVT, can consider aspirin once anticoagulation discontinued for DVT
� High intensity statin
-Coreg
-add losartan
-cards recs
-asa
# Uncontrolled hypertension
-40 IV Lasix bid
-Toprol, losartan
#Hypokalemia
-monitor and replete
# Nonischemic myocardial injury
-Troponin 0.05
-EKG shows sinus tachycardia, ST depressions in lateral leads
-L/RHC - non obstructive
-consider asa once noac course completed
-a1c 6.4
# DYLON v CKD
-Creatinine of 1.4, no previous
-Monitor with diuresis
# LE DVT
-on Hep ggt
-switch to NOAC once cleared by Cards
History of DVT
#Migraine
-CT head unremarkable for acute pathology
-Small nonacute right cerebellar infarcts
-on asa, statin
-F/u UA
-no focal defeciits
Smoker
-nicotine patch
-smoking cessaton
Alcohol use
-cessation advised
Anxiety
Cataracts
GERD
Full code
DVT prophylaxis�heparin
Cardiac diet
Total time spent on today's encounter was 52 minutes which included time spent in counseling the patient/family regarding diagnosis and treatment plan as listed above, goals of care, and symptom management. Case was discussed with nursing staff,
specialists, and care coordinators/case management. All labs and imaging personally reviewed by me. Remainder the time spent in detailed review of previous records, lab data, imaging, and other medical provider documentation.
Anticipated Discharge: 24 - 48 hours
Subjective/Interval History
-
Date of Service: November 23, 2024
Primary, receiving treatment for migraines overnight, improved
Objective Data
-
Labs:
Laboratory Results
11/23/24 11/23/24
02:56 11:16
WBC 7.6
Hgb 16.0
Hct 47.8
Plt Count 225
APTT 169.9 H* 135.9 H
Sodium 138
Potassium 3.9
Chloride 100
Carbon Dioxide 28
BUN 33 H
Creatinine 1.2
Glucose 127 H
Calcium 9.6
Total Bilirubin 1.1
AST 26
ALT 36
Alkaline Phosphatase 102
Vital Signs:
Vital Signs
Temp Pulse Resp BP Pulse Ox
98.3 F 95 18 100/72 97
11/23/24 10:58 11/23/24 12:00 11/23/24 10:58 11/23/24 10:58 11/23/24 10:58
I&O
03/28/25 03/29/25 03/30/25
06:59 06:59 06:59
Intake Total 1745 / 1745 480 / 480 480 / 480
Output Total 5450 / 5450 2074 / 2074 250 / 250
Balance -3705 / -3705 -1595 / -1595 230 / 230
Review of Systems
-
History Source: Patient
All other systems: Not reviewed unless documented
Data Reviewed
-
Diagnostic Radiology: Report Reviewed by me
CT Scan: Report Reviewed by me
Ultrasound: Report Reviewed by me
Medical Tests (Nuc Med, Echo etc): Report Reviewed by me
Labs: Labs Reviewed by me
[2024-11-23] MEDS: NICODERM TRANSDERMAL 21 MG TRANSDERM (14:26)
[2024-11-23] MEDS: ALDACTONE 12.5 MG PO (14:29)
[2024-11-23] MEDS: FLUSH (NSS) 1 FLUSH IV ×2 (14:29→17:55)
[2024-11-23] MEDS: LIPITOR 40 MG PO (17:56)
--- NOTE | 2024-11-23 18:25 | PTCARENOTE ---
pt continues to sleep throughout the day. pt is arousable and states 'I am starting to feel better.' pt is sr on the monitor, hr in the 90s, vss. pt continues to need O2 therapy, 2LO2 NC 91-92%. Notified dr. ward, ordered nocturnal 02, notified
respiratory. pt and educated on plan of care and pt verbalized understanding. call gonsales within reach.
[2024-11-23 18:33] LABS: Glucose - Point of Care 122 mg/dl (70-99)
[2024-11-23 20:34] LABS: APTT 73.3 Sec (23.4-35.0)
[2024-11-23 22:18] LABS: Glucose - Point of Care 123 mg/dl (70-99)
[2024-11-24] VITALS (7 sets, daily range): BP systolic 92–123; BP diastolic 60–81; BMI 23.0
[2024-11-24] MEDS: HEPARIN 25000 UNITS/250 ML IV ×2 (02:34→22:46)
[2024-11-24 03:02] LABS: APTT 32.5 Sec (23.4-35.0)
[2024-11-24 03:03] LABS: ALT (SGPT) 30 U/L (0-50); AST (SGOT) 25 U/L (17-59); Albumin 3.3 g/dl (3.5-5.0); Alkaline Phosphatase 75 U/L (38-126); Blood Urea Nitrogen 30 mg/dl (9-20); Calcium 9.5 mg/dl (8.4-10.2); Carbon Dioxide 33 mmol/L (22-30); Chloride 101 mmol/L (98-107); Estimated Creatinine Clearance 61 ml/min; Glucose 169 mg/dl (70-99); Potassium 3.8 mmol/L (3.5-5.1); Sodium 140 mmol/L (135-145); Total Bilirubin 0.9 mg/dl (0.2-1.3); Total Protein 6.1 g/dl (6.3-8.2); eGFR > 60.00
[2024-11-24] MEDS: HEPARIN 6600 UNITS IV (03:40)
--- NOTE | 2024-11-24 07:58 | W.PN.CARDCBS ---
Today's Communication / Plan
-
Left cath again reviewed with pt. Medical therapy for now for his CAD including his 80% OM1 and 30-40% prox LAD and 50-60% Ramus
Cont IV lasix diuresis.
Wt still coming down
Cr remains stable and improved overall
Follow Is and Os
Possible transition to oral lasix next 24-48 hrs pending diuresis
Cont med tx of NICM
Cont aldactone
With mod CAD, Lipitor added
LDL goal < 70
Cont GDMT with losartan and Coreg and Aldactone
LVEDP 30 mmHg, right heart not performed.
Case management to assess cost of ARNI and SGLT2 inhibitor.
Can transition to oral anticoagulation for his DVT hx from cardiac standpoint as no further procedures are planned at this point.
Smoking and alcohol cessation is a must
HF education
Concern as well for underlying sleep apnea. consider for OP sleep study
Will need 90 day echo to reevaluate EF
Impression / Plan
-
.
Primary Poolroom/Poolhall Manager: none prior to admission
Impression:
Presentation with B/L LE edema
Nonocclusive B/L LE DVT
Acute HFrEF
Moderate right and small left pleural effusions
Renal insufficiency
Elevated troponin
Sinus tachycardia
History of LLE DVT
HTN, uncontrolled
Former ETOH abuse
Ongoing tobacco use
[place]
History of noncompliance
Echocardiogram 02/07/2018: EF 60 to 65%, mild AR
ECHO 11/21/24: EF 15 to 20%, mildly dilated LV, global hypokinesis, mild concentric LVH, stage II diastolic dysfunction, moderate MR, mild AR, mild TR, PAP 50 to 55 mmHg
Left Heart cath November 22 2024:
HEMODYNAMICS : (mmHg)
AO (s/d) : 125/78, 96
LV (s/d) : 121/14
LVEDP : 30
CORONARY FINDINGS: Mild to moderate coronary calcification
DOMINANCE: Right
LEFT MAIN: Normal
LEFT ANTERIOR DESCENDING: The LAD arises normally from the left main and runs in the anterior interventricular groove. There is a 30-40% proximal LAD stenosis just beyond the first septal workforce development vice president and proximal to the first diagonal branch. The
mid to distal LAD has luminal irregularities
Ramus: Moderate caliber ramus intermedius with 50-60% mid
CIRCUMFLEX: The circumflex is a moderate caliber nondominant vessel. OM1 is a small to medium caliber vessel with a 80% proximal stenosis. The circumflex supplies a sizable bifurcating OM 2 and terminates in a small posterolateral branch
RIGHT CORONARY ARTERY: The right coronary artery is a medium caliber dominant vessel with a calcified eccentric 60% stenosis proximal to the RV marginal branch and long 60% stenosis beyond the RV marginal branch. The PDA is patent as is a small
posterolateral branch.
VENTRICULOGRAPHY: Left ventriculography is performed in an MELENDEZ projection. The digital single-plane ventricular ejection fraction is estimated at 15%. The ventricle is globally hypokinetic with the apex moving mass. There is +1 mitral
regurgitation.
HEMODYNAMIC ASSESSMENT OF THE LAD WITH A VOLCANO OMNI WIRE: The origin of the left main was cannulated with a 6 Fr JL 4 guide catheter. Intravenous heparin was administered and the ACT was followed during the procedure. Two hundred micrograms of
intracoronary nitroglycerin was given through the guide catheter. A Eleele Verrata wire was advanced to the guide catheter tip and normalized to guide catheter pressure. The Verrata wire was then carefully manipulated across the stenosis in the
proximal LAD and into the mid to distal vessel where the iFR serially measured above the ischemic threshold at 0.95, 0.93, and 0.94. The Verrata wire was slowly withdrawn to the coronary guide catheter where the resting Pd/Pa measured 0.98
confirming no significant baseline drift.
CONCLUSIONS
1. LV dysfunction out of proportion to the extent of coronary artery disease. Coronary artery disease primarily involves small to medium caliber OM1 with 80% stenosis and nonobstructive coronary disease in the proximal LAD. There is moderate
coronary disease in the proximal to mid right coronary artery.
RECOMMENDATIONS
1. Guideline directed medical therapy for dilated cardiomyopathy
2. Oral anticoagulation is planned for nonobstructive lower extremity thrombus. Would consider aspirin therapy if/when oral anticoagulation for DVT is discontinued
3. High intensity statin
Plan:
Left cath again reviewed with pt. Medical therapy for now for his CAD including his 80% OM1 and 30-40% prox LAD and 50-60% Ramus
Cont IV lasix diuresis.
Wt still coming down
Cr remains stable and improved overall
Follow Is and Os
Possible transition to oral lasix next 24-48 hrs pending diuresis
Cont med tx of NICM
Cont aldactone
With mod CAD, Lipitor added
LDL goal < 70
Cont GDMT with losartan and Coreg and Aldactone
LVEDP 30 mmHg, right heart not performed.
Case management to assess cost of ARNI and SGLT2 inhibitor.
Can transition to oral anticoagulation for his DVT hx from cardiac standpoint as no further procedures are planned at this point.
Smoking and alcohol cessation is a must
HF education, discussed diet and sodium and fluid restrictions.
Concern as well for underlying sleep apnea. consider for OP sleep study
Will need 90 day echo to reevaluate EF
Progress Note - Poolroom/Poolhall Manager
Subjective
Date of Service: November 24, 2024
Pt seen and examined. No cp. Breathing improving.
Objective
Labs:
11/23/24 02:56
11/24/24 02:42
Labs
Hgb 16.0 g/dL (13.0-18.0) 11/23/24 02:56
Hct 47.8 % (39.0-52.0) 11/23/24 02:56
Plt Count 225 10^3/uL (130-400) 11/23/24 02:56
APTT 32.5 Sec (23.4-35.0) 11/24/24 02:42
Sodium 140 mmol/L (135-145) 11/24/24 02:42
Potassium 3.8 mmol/L (3.5-5.1) 11/24/24 02:42
BUN 30 mg/dl (9-20) H 11/24/24 02:42
Creatinine 1.2 mg/dL (0.7-1.3) 11/24/24 02:42
Glucose 169 mg/dl (70-99) H 11/24/24 02:42
Troponins
11/21/24 11/21/24 11/22/24
07: 16:47 00:06
Troponin I 0.053 H* 0.053 H* 0.047 H*
Vital Signs and I&O:
Vital Signs
Temp Pulse Resp BP Pulse Ox
98.8 F 102 20 107/72 92
11/24/24 07:02 11/24/24 04:00 11/24/24 07:02 11/24/24 03:47 11/24/24 07:02
Vital Signs
Temp Pulse Resp BP Pulse Ox
98.8 F 102 20 107/72 92
11/24/24 07:02 11/24/24 04:00 11/24/24 07:02 11/24/24 03:47 11/24/24 07:02
Intake & Output
11/22/24 11/23/24 11/24/24 11/25/24
06:59 06:59 06:59 06:59
Intake Total 1745 / 1745 480 / 480 1920 / 1920
Output Total 5450 / 5450 2074 / 2074 165 / 165
Balance -3705 / -3705 -1595 / -1595 270 / 270
Physical Exam
Physical Exam
General: No acute distress, AAOX3
Neck: Negative JVD
Heart: Regular, Negative S3 positive S1/S2, Negative S4, No murmur
Lungs: CTA b/l, negative wheezes/rales/rhonchi
Abd: Positive BS, NT/ND, neg rebound/rigidity/guarding
Ext: Negative cyanosis/clubbing. +1 b/l edema
Neuro: nonfocal
[2024-11-24 08:20] LABS: Glucose - Point of Care 170 mg/dl (70-99)
[2024-11-24] MEDS: ALDACTONE 12.5 MG PO (08:33)
[2024-11-24] MEDS: LOW STRENGTH ASPIRIN 81 MG PO (08:33)
[2024-11-24] MEDS: COREG 6.25 MG PO ×2 (08:33→20:12)
[2024-11-24] MEDS: LASIX 40 MG IV ×2 (08:33→15:55)
[2024-11-24] MEDS: COZAAR 25 MG PO ×2 (08:34→20:13)
[2024-11-24] MEDS: NICODERM TRANSDERMAL 21 MG TRANSDERM (08:34)
--- NOTE | 2024-11-24 09:15 | PTCARENOTE ---
Rec'd pt at handoff. Heparin gtt infusing at 14 ml/hr. Assessment completed as documented. VSS. Pt has no complaints at this time. Plan of care verbalized w/ pt and verbalizes understanding. Pt ambulatory in room w/ steady gait. Call gonsales is w/in
reach.
[2024-11-24] MEDS: NOVOLOG FLEXPEN-LOW RESISTANCE 1 UNITS SC (09:22)
[2024-11-24 10:53] LABS: APTT 113.4 Sec (23.4-35.0)
[2024-11-24 12:46] LABS: Glucose - Point of Care 112 mg/dl (70-99)
[2024-11-24] MEDS: NOVOLOG FLEXPEN-LOW RESISTANCE SC ×2 (12:53→18:41)
--- NOTE | 2024-11-24 14:37 | W.PN.HOSP.TC ---
Addendum entered and electronically signed by James Galarza MD 11/24/24 14:50:
Combined systolic and diastolic
Original Note:
Today's Communication/Plan
-
Cont iv diuresis for additional 24 - 48 hours
ASA, Stain
GDMT
Pricing for Eliquis - CM consulted
Assessment / Plan
Assessment / Plan
Physical Exam
General: Well Developed, Well Nourished and No Apparent Distress
HEENT: NormoCephalic, Moist mucous membranes and Atraumatic
Respiratory: Clear
Cardiac: S1/S2, Regular Rhythm and Peripheral Edema; No Murmur or Rub
GI: Soft, Non Tender, Non Distended and Normal Bowel Sounds; No Organomegaly
Rectal: Deferred by Provider
Musculoskeletal: No Clubbing, No Cyanosis and No Edema
Skin: No Rash
Neuro: Nonfocal/grossly intact
# Acute CHF exacerbation
#Acute HFrEF and HFpEF
-ECHO 11/21/24: EF 15 to 20%, mildly dilated LV, global hypokinesis, mild concentric LVH, stage II diastolic dysfunction, moderate MR, mild AR, mild TR, PAP 50 to 55 mmHg
-Cont Diuresis
-[facility] 11/23�no need for coronary intervention; guideline directed medical therapy for dilated cardiomyopathy. On anticoagulation for DVT, can consider aspirin once anticoagulation discontinued for DVT
� High intensity statin
-Coreg
-add losartan, Aldactone
-cards recs
-asa
-Case management to assess cost of ARNI and SGLT2 inhibitor.
# Uncontrolled hypertension
-40 IV Lasix bid
-Toprol, losartan
#Hypokalemia
-monitor and replete
# Nonischemic myocardial injury
-Troponin 0.05
-EKG shows sinus tachycardia, ST depressions in lateral leads
-L/RHC - non obstructive
-consider asa once noac course completed
-a1c 6.4
# DYLON v CKD
-Creatinine of 1.4, no previous
-Monitor with diuresis
# LE DVT
-on Hep ggt
-shopping centre manager consulted for pricing of Eliquis
-History of DVT
#Migraine, resolved
-CT head unremarkable for acute pathology
#Small nonacute right cerebellar infarcts
-on asa, statin
-no focal defeciits
#Nocturnal hypoxia
� Required on nocturnal testing
� Benefits from sleep study outpatient
� Discharge on oxygen nightly
Smoker
-nicotine patch
-smoking cessaton
Alcohol use
-cessation advised
Anxiety
Cataracts
GERD
Full code
DVT prophylaxis�heparin
Cardiac diet
Anticipated Discharge: 24 - 48 hours
Subjective/Interval History
-
Date of Service: November 24, 2024
Migraine resolved
Objective Data
-
Labs:
Laboratory Results
11/24/24 11/24/24 11/24/24
02:42 10:30 17:40
APTT 32.5 113.4 H Pending
Sodium 140
Potassium 3.8
Chloride 101
Carbon Dioxide 33 H
BUN 30 H
Creatinine 1.2
Glucose 169 H
Calcium 9.5
Total Bilirubin 0.9
AST 25
ALT 30
Alkaline Phosphatase 75
Vital Signs:
Vital Signs
Temp Pulse Resp BP Pulse Ox
97.7 F 95 20 120/80 97
11/24/24 12:04 11/24/24 12:05 11/24/24 12:04 11/24/24 12:05 11/24/24 12:04
I&O
11/23/24 11/24/24 11/25/24
06:59 06:59 06:59
Intake Total 480 / 480 1920 / 192 400 / 400
Output Total 2074 1650 / 1650 200 / 200
Balance -1595 / -1595 270 / 270 200 / 200
Review of Systems
-
History Source: Patient
All other systems: Not reviewed unless documented
Data Reviewed
-
Diagnostic Radiology: Report Reviewed by me
CT Scan: Report Reviewed by me
Ultrasound: Report Reviewed by me
Medical Tests (Nuc Med, Echo etc): Report Reviewed by me
Labs: Labs Reviewed by me
[2024-11-24] MEDS: LIPITOR 40 MG PO (17:25)
[2024-11-24 17:47] LABS: APTT 67.8 Sec (23.4-35.0)
[2024-11-24] MEDS: HEPARIN 3300 UNITS IV (18:18)
[2024-11-24 18:26] LABS: Glucose - Point of Care 145 mg/dl (70-99)
[2024-11-24 20:20] LABS: Glucose - Point of Care 120 mg/dl (70-99)
[2024-11-25 00:56] LABS: APTT 119.9 Sec (23.4-35.0)
[2024-11-25 03:50] VITALS: BP 119/76; BMI 22.6
--- NOTE | 2024-11-25 04:53 | PTCARENOTE ---
Pt NSr on monitor. Denies elisa or any discomfort. Pt independent in the room. call gonsales in reach
[2024-11-25 07:14] VITALS: BP 120/70
[2024-11-25 07:17] LABS: Hematocrit 51.5 % (39.0-52.0); Hemoglobin 17.2 g/dL (13.0-18.0); Mean Corp Hgb Conc. 33.4 g/dL (33.0-37.0); Mean Corpuscular Hgb 30.8 pg (27.0-31.0); Mean Corpuscular Volume 92.3 fL (80.0-94.0); Mean Platelet Volume 9.3 fL (7.4-10.4); Platelet Count 252 10^3/uL (130-400); Red Blood Cell Count 5.58 10^6/uL (4.70-6.10); Red Cell Dist. Width 14.2 % (11.5-14.5); White Blood Cell Count 6.1 10^3/uL (4.8-10.8)
[2024-11-25 07:19] LABS: Glucose - Point of Care 169 mg/dl (70-99)
[2024-11-25] MEDS: TYLENOL 650 MG PO (07:37)
[2024-11-25] MEDS: LOW STRENGTH ASPIRIN 81 MG PO (07:38)
[2024-11-25] MEDS: COZAAR 25 MG PO (07:38)
[2024-11-25] MEDS: COREG 6.25 MG PO (07:38)
[2024-11-25] MEDS: NICODERM TRANSDERMAL 21 MG TRANSDERM (07:38)
[2024-11-25] MEDS: LASIX 40 MG IV (07:38)
[2024-11-25] MEDS: ALDACTONE 12.5 MG PO (07:38)
[2024-11-25] MEDS: NOVOLOG FLEXPEN-LOW RESISTANCE 1 UNITS SC (07:40)
--- NOTE | 2024-11-25 07:50 | W.PN.CARDCBS ---
Addendum entered and electronically signed by Katy Acosta DO 11/25/24 11:17:
I saw and examined the patient.
The Distribution Center Associate's note was reviewed and I agree with the note.
Comment: Seen and examined. Patient is feeling well and anxious to return home. Denies abdominal pain, chest pain or shortness of breath. Remains on IV heparin.
GEN: No distress, awake, alert, oriented x3
HEENT: mmm
LUNGS: CTA b/l, no wheezes/rales
CV: Reg, S1/S2, no murmur
EXT: No clubbing or cyanosis, trace LE edema
NEURO: Gross non-focal
Plan:
Presented with bilateral leg edema found to have nonocclusive lower extremity DVT with a history of prior DVT
-CT PE study 11/21/2024 with no pulmonary embolism. Thoracic aorta normal in size without evidence of aneurysm or dissection. Moderate right and small left pleural effusions with atelectasis. Trace pericardial fluid without significant pericardial
effusion.
-Has been on IV heparin gtt- CM assessed the cost of Eliquis and patient is agreeable to cost. OK to transition to therapeutic dose Eliquis for DVT from cardiac standpoint as no further procedures planned.
-Recommend outpatient hematology evaluation for hypercoagulable workup and duration of therapy, probably indefinite, given recurrent unprovoked event
Acute heart failure with reduced ejection fraction, EF 10 to 15%
-Appears euvolemic not previously on a diuretic prior to admission
-LVEDP 30 by cath on 11/22/2024
-Will transition Lasix to oral; discharged on Lasix 40 mg daily
-Continue goal-directed medical therapy as well as heart failure education: Continue Coreg, losartan and spironolactone. As an outpatient can consider transition of losartan to Entresto as well as the addition of an SGLT2 inhibitor. Patient is
concerned of cost of SGLT2 inhibitor in addition to Eliquis so we will hold off for now.
-Tobacco cessation and alcohol strongly advised
-Outpatient sleep study
-Follow-up 2D echocardiogram 3 months on goal-directed medical therapy
Nonobstructive coronary artery disease by left heart catheterization out of a portion to cardiomyopathy
-No chest pain or pressure
-Continue aggressive medical therapy: Continue aspirin and Lipitor. LDL 74 mg/dL
-Discussed the importance of tobacco and alcohol cessation
-C showed moderate disease, however LV dysfunction was felt to be out of proportion to coronary artery disease, so managing as nonischemic CM.
-Continue aspirin 81mg daily and lipitor 40mg daily. LDL 74.
Elevated LFTs noted 11/25 w/ AST/ALT 61/55.
-Consider RUQ US to evaluate, defer to primary service.
-Follow up arranged.
-Repeat lab work in 1 week
Original Note:
Today's Communication / Plan
-
OK to transition to Eliquis for DVT from cardiac standpoint. No further procedures planned
Continue medical therapy w/ coreg, losartan, spironolactone.
SLGT2 inhibitor cost prohibitive.
Will transition to PO lasix 40 mg daily. Check CMP in 1 week
Consider abdominal US given elevated LFTs.
Cardiology follow up arranged.
Impression / Plan
-
Primary Method Consultant: none prior to admission
Impression:
Presentation with B/L LE edema
Nonocclusive B/L LE DVT
Acute HFrEF
Moderate right and small left pleural effusions
Renal insufficiency
Elevated troponin
Sinus tachycardia
History of LLE DVT
HTN, uncontrolled
Former ETOH abuse
Ongoing tobacco use
[place]
History of noncompliance
Echo 02/07/2018: EF 60 to 65%, mild AR
ECHO 11/21/24: EF 15 to 20%, mildly dilated LV, global hypokinesis, mild concentric LVH, stage II diastolic dysfunction, moderate MR, mild AR, mild TR, PAP 50 to 55 mmHg
[facility] 11/22/2024: LVEDP : 30 mmHg. LM: Normal. LAD: 30-40% proximal LAD stenosis. Ramus: 50-60% mid stenosis. Circumflex: 80% proximal OM1 stenosis. RCA: Eccentric 60% stenosis proximal to RV marginal branch and long 60% stenosis beyond RV marginal
branch.
Plan:
-Presented with b/l LE edema. Found to have nonocclusive b/l LE DVT in the setting of prior DVT.
-Has been on IV heparin for AC. CM assessed the cost of Eliquis. OK to transition to Eliquis for DVT from cardiac standpoint as no further procedures planned. He is agreeable to cost as laid out by CM.
-Diuresing with IV lasix 40mg BID. Weight down to 148 lbs, down 3 lbs overnight. Creat overall stable at 1.2. Was not on diuretic prior to admission. LVEDP was 30 by cath 11/22.
-Will transition to PO lasix 40mg daily. Follow daily weights, recheck CMP in 1 week as OP.
-Echo 10/2024 noted EF 15 to 20% and moderate MR as noted above.
-LHC showed moderate disease, however LV dysfunction was felt to be out of proportion to coronary artery disease, so managing as nonischemic CM.
-Continue aspirin 81mg daily and lipitor 40mg daily. LDL 74.
-Continue GDMT of CHF/CM as able. Continue coreg, losartan, and spironolactone. BP stable. Patient concerned about cost of SGLT2 inhibitor in addition to Eliquis. Will hold off on SGLT2 inhibitor for now.
-Smoking and alcohol cessation is a must.
-Concern as well for underlying sleep apnea. Consider for OP sleep study
-Will need 90 day echo to reevaluate EF
-Elevated LFTs noted 11/25 w/ AST/ALT 61/55. May consider RUQ US to evaluate, defer to primary service.
-Follow up arranged.
Progress Note - Method Consultant
Subjective
Date of Service: November 25, 2024
Feeling well at this time w/ no complaints.
Objective
Labs:
11/25/24 07:06
Labs
Hgb 17.2 g/dL (13.0-18.0) 11/25/24 07:06
Hct 51.5 % (39.0-52.0) 11/25/24 07:06
Plt Count 252 10^3/uL (130-400) 11/25/24 07:06
APTT 119.9 Sec (23.4-35.0) H 11/25/24 00:24
Sodium 140 mmol/L (135-145) 11/24/24 02:42
Potassium 3.8 mmol/L (3.5-5.1) 11/24/24 02:42
BUN 30 mg/dl (9-20) H 11/24/24 02:42
Creatinine 1.2 mg/dL (0.7-1.3) 11/24/24 02:42
Glucose 169 mg/dl (70-99) H 11/24/24 02:42
Vital Signs and I&O:
Vital Signs
Temp Pulse Resp BP Pulse Ox
97.6 F 98 18 119/76 97
11/25/24 07:15 11/25/24 03:50 11/25/24 07:15 11/25/24 03:50 11/25/24 07:15
Vital Signs
Temp Pulse Resp BP Pulse Ox
97.6 F 98 18 119/76 97
11/25/24 07:15 11/25/24 03:50 11/25/24 07:15 11/25/24 03:50 11/25/24 07:15
Intake & Output
11/23/24 11/24/24 11/25/24 11/26/24
06:59 06:59 06:59 06:59
Intake Total 480 / 480 1920 / 1920 600 / 600
Output Total 2074 / 2074 1650 / 1650 650 / 650
Balance -1595 / -1595 270 / 270 -50 / -50
Physical Exam
Physical Exam
GEN: No distress, awake, alert, oriented x3
HEENT: supple, anicteric, mmm
LUNGS: CTA b/l, no wheezes/rales
CV: Reg, S1/S2, no murmur
EXT: No clubbing or cyanosis, trace LE edema
NEURO: Gross non-focal
SKIN: warm, dry, no rash
[2024-11-25 07:55] LABS: ALT (SGPT) 55 U/L (0-50); AST (SGOT) 61 U/L (17-59); Albumin 3.7 g/dl (3.5-5.0); Alkaline Phosphatase 68 U/L (38-126); Blood Urea Nitrogen 28 mg/dl (9-20); Calcium 9.5 mg/dl (8.4-10.2); Carbon Dioxide 31 mmol/L (22-30); Chloride 100 mmol/L (98-107); Estimated Creatinine Clearance 60 ml/min; Glucose 177 mg/dl (70-99); Potassium 3.6 mmol/L (3.5-5.1); Sodium 139 mmol/L (135-145); Total Bilirubin 0.9 mg/dl (0.2-1.3); Total Protein 6.5 g/dl (6.3-8.2); eGFR > 60.00
[2024-11-25 08:35] VITALS: BMI 22.6
[2024-11-25 08:40] LABS: APTT 150.4 Sec (23.4-35.0)
--- NOTE | 2024-11-25 09:48 | CM ---
Priced Eliquis starter pack thru patient's pharmacy- co pay for this would be $75.
[address] free 30 d coupon in patient's chart
--- NOTE | 2024-11-25 10:42 | PTCARENOTE ---
Assumed care at 0700. Patient AO x3. Heparin gtt infusing per OCT. Denies pain,NSR HR 80's, no edema. Lungs CTA, denies shortness of breath. Call gonsales in reach
[2024-11-25 11:42] VITALS: BP 108/64
[2024-11-25 11:49] LABS: Glucose - Point of Care 122 mg/dl (70-99)
[2024-11-25] MEDS: NOVOLOG FLEXPEN-LOW RESISTANCE SC (12:37)
--- NOTE | 2024-11-25 13:17 | CM ---
CM following for DC planning needs.
Met w/ patient at bedside. Pt. reports that he is feeling well, he is hopeful for DC soon.
We discussed cost of Eliquis. Pt. states that at this time, this will be the only new medication Rxed.
I have placed coupon in patient's chart for both free 30 d and $10/ co pay card.
Pt. declines any other DC needs.
Plan is for home without needs.
Will remain available.
--- NOTE | 2024-11-25 14:45 | W.PN.HOSP.TC ---
Today's Communication/Plan
-
dc to home
Assessment / Plan
Assessment / Plan
# Acute CHF exacerbation
#Acute HFrEF and HFpEF
-ECHO 11/21/24: EF 15 to 20%, mildly dilated LV, global hypokinesis, mild concentric LVH, stage II diastolic dysfunction, moderate MR, mild AR, mild TR, PAP 50 to 55 mmHg
-Cont Diuresis
-[facility] 11/23�no need for coronary intervention; guideline directed medical therapy for dilated cardiomyopathy. On anticoagulation for DVT, can consider aspirin once anticoagulation discontinued for DVT
� High intensity statin
-Coreg
-add losartan, Aldactone
-cards recs
-asa
-Case management to assess cost of ARNI and SGLT2 inhibitor.
# Uncontrolled hypertension
-40 IV Lasix bid to change to oral Lasix
-Toprol, losartan
#Hypokalemia
-monitor and replete
# Nonischemic myocardial injury
-Troponin 0.05
-EKG shows sinus tachycardia, ST depressions in lateral leads
-L/RHC - non obstructive
-consider asa once noac course completed
-a1c 6.4
# DYLON v CKD
-Creatinine of 1.4, no previous
-Monitor with diuresis
# LE DVT
-on Hep ggt
-occupational safety and health manager consulted for pricing of Eliquis, will start Eliquis prior to dc, 2nd dose tonight
-History of DVT
#Migraine, resolved
-CT head unremarkable for acute pathology
#Small nonacute right cerebellar infarcts
-on asa, statin
-no focal defeciits
#Nocturnal hypoxia
� Required on nocturnal testing
� Benefits from sleep study outpatient
� Discharge on oxygen nightly
Smoker
-nicotine patch
-smoking cessaton
Must stop smoking
Alcohol use
-cessation advised
Anxiety
Cataracts
GERD
mild elevation of transaminases, offered to get US in morning, prior todc, pt adamently refused and even was unable to convince
Full code
DVT prophylaxis�heparin
Cardiac diet
dc to home
see dictated note
More than 30 minutes spent in discharge including
Final examination of the patient
Summarizing hospital stay
Instructions for continuing care to all relevant caregivers
Preparation of discharge records, prescriptions, and referral forms
Total time spent (in minutes): 55
Anticipated Discharge: Today
Subjective/Interval History
-
Date of Service: November 25, 2024
Feels well, absolutely wants to be dc now
Objective Data
-
Labs:
Laboratory Results
11/25/24 11/25/24
07:06 16:00
WBC 6.1
Hgb 17.2
Hct 51.5
Plt Count 252
APTT 150.4 H* Pending
Sodium 139
Potassium 3.6
Chloride 100
Carbon Dioxide 31 H
BUN 28 H
Creatinine 1.2
Glucose 177 H
Calcium 9.5
Total Bilirubin 0.9
AST 61 H
ALT 55 H
Alkaline Phosphatase 68
Vital Signs:
Vital Signs
Temp Pulse Resp BP Pulse Ox
98.1 F 98 18 108/64 100
11/25/24 11:43 11/25/24 13:00 11/25/24 11:43 11/25/24 11:42 11/25/24 11:43
I&O
11/24/24 11/25/24 11/26/24
06:59 06:59 06:59
Intake Total 1920 / 1920 600 / 600
Output Total 1650 / 1650 650 / 650
Balance 270 / 270 -50 / -50
Review of Systems
-
History Source: Patient and Family ( in room and at computer with me (Keyla)
EENT: Reports No Symptoms Reported
Respiratory: Reports No Symptoms; Denies Cough, Hemoptysis or Trouble Breathing
Cardiac: Reports No Symptoms; Denies Chest Pain
Abdomen/GI: Reports No Symptoms; Denies Abdominal Pain, Nausea or Vomiting
Genitourinary: Reports No Symptoms
Neuro: Reports No Symptoms
Physical Exam
-
General: Well Developed, Well Nourished and No Apparent Distress
HEENT: Normocephalic, Atraumatic and Moist Mucous Membranes
Respiratory: Clear to Auscultation; Negative Wheezes, Rales or Rhonchi
Cardiac: Regular Rhythm and S1/S2
GI: Soft, Nontender and Nondistended
Genito-urinary: No Costovertebral Tender
Musculoskeletal: No Clubbing, No Cyanosis and No Edema
Neuro: Awake, Alert and Oriented
[2024-11-25 15:20] VITALS: BP 120/68
--- NOTE | 2024-11-25 15:32 | PTCARENOTE ---
Heparin gtt discontinued at 1520. IV's removed
[2024-11-25] MEDS: PREVNAR 20 0.5 ML IM (15:46)
[2024-11-25] MEDS: LIPITOR 40 MG PO (15:50)
--- NOTE | 2024-11-25 16:03 | PTCARENOTE ---
Discharge teaching completed. Patient verbalized understanding. IV and telemetry removed. Heparin gtt stopped at 1520 and will be given Eliquis at 1620. at bedside to drive him home today. Pneumonia vaccine given at discharge left deltoid
[2024-11-25] MEDS: ELIQUIS 5 MG PO (16:14)
--- NOTE | 2024-11-25 17:53 | W.DS.TRANS ---
DC Summary - Dianetic Counselor
-
Discharge Instructions:
Sleep Apnea Risk Low
Discharge Diagnosis/Procedures Cardiac cath, CHF, cardiomyopathy
Diet Low Cholesterol,2 Gram Sodium,Restrict fluids to
48 oz
Activity As tolerated,No strenuous activity
Driving Restrictions No driving for 24 hours
Bathing Restrictions None
Blood Work CMP in 1 week
Others Tests Liver/Gall Bladder Ultrasound after seen by PCP
Specialty Instructions Weigh Daily
Instructions: *PCP/Other Government Minister Heart Failure Instructions
Stand-Alone Forms: DC Instructions- Cath/EP Lab
Changes to Home Medications: Yes
Discharge Medications:
DC Medications w/original date entered in [facility]
apixaban 5 mg tablet (Eliquis) 5 mg PO BID #60 tabs 11/25/24
aspirin 81 mg chewable tablet 81 mg PO DAILY #30 tabs 11/25/24
atorvastatin 40 mg tablet 40 mg PO QPM #30 tabs 11/25/24
carvedilol 6.25 mg tablet 6.25 mg PO BID #60 tabs 11/25/24
furosemide 40 mg tablet 40 mg PO DAILY #30 tabs 11/25/24
losartan 25 mg tablet 25 mg PO BID #60 tabs 11/25/24
metformin 500 mg tablet 500 mg PO DAILY #30 tabs 11/25/24
nicotine 21 mg/24 hr daily transdermal patch 21 mg transdermal DAILY #28 ea 11/25/24
spironolactone 25 mg tablet 12.5 mg (1/2 x 25 mg) PO DAILY #30 tabs 11/25/24
Home Medication Changes
all medications are neew
Pending Results: No
--- NOTE | 2024-11-27 09:18 | W.HF.CON ---
Heart Failure
- LV Function
Left ventricular function study result: LV Ejection fraction </= 35%
Ejection Fraction Percentage: 10-15
- ARNI
Patient already on ARNI: No
Heart Failure ARNI Contraindication: Hypotension, Patient Refusal
- ACEI/ARB
Patient already on ACEI/ARB: Yes
- Beta David
Patient already on Evidence Based Beta David: Yes
- Mineralocorticord Receptor Antagonist
Patient already on MRA: Yes
- SGLT-2 Inhibitor
Patient already on SGLT-2 Inhibitor: No
Heart Failure SGLT-2 Inhibitor Contraindication: Patient Refusal
- NYHA CHF Classification
NYHA CHF Classification Level: Class III - Symptoms w/ min exertion, interferes w/ nml daily activity
- ACC/AHA Stage
ACC/AHA Stage: Stage C: Symptomatic Heart Failure
== END 2024-11-25 16:24 | disposition home or self-care (01) | DRG 286 ==
LOC: IVU 22:58
PROVIDERS: Hospitalist; Internal Medicine; Internal Medicine Cardiovascular Disease; Internal Medicine Interventional Cardiology; Physician Assistant; ADMITTING PHYSICIAN Hospitalist; ATTENDING PHYSICIAN Internal Medicine; EMERGENCY PHYSICIAN Emergency Medicine; FAMILY PHYSICIAN Family Medicine; OTHER PHYSICIAN Nuclear Medicine Nuclear Cardiology
PROC: 4A023N7 Measurement of Cardiac Sampling and Pressure, Left Heart, Percutaneous Approach (ICD-10-PCS; 2024-11-22)
PROC: 4A033BC Measurement of Arterial Pressure, Coronary, Percutaneous Approach (ICD-10-PCS; 2024-11-22)
PROC: B211YZZ Fluoroscopy of Multiple Coronary Arteries using Other Contrast (ICD-10-PCS; 2024-11-22)
PROC: B215YZZ Fluoroscopy of Left Heart using Other Contrast (ICD-10-PCS; 2024-11-22)
PROC: 3E0234Z Introduction of Serum, Toxoid and Vaccine into Muscle, Percutaneous Approach (ICD-10-PCS; 2024-11-25)
DX: I11.0 Hypertensive heart disease with heart failure (principal); I50.43 Acute on chronic combined systolic (congestive) and diastolic (congestive) heart failure; I63.89 Other cerebral infarction; N17.9 Acute kidney failure, unspecified; I82.513 Chronic embolism and thrombosis of femoral vein, bilateral; I82.533 Chronic embolism and thrombosis of popliteal vein, bilateral; I82.543 Chronic embolism and thrombosis of tibial vein, bilateral; I5A Non-ischemic myocardial injury (non-traumatic); I25.10 Atherosclerotic heart disease of native coronary artery without angina pectoris; I42.0 Dilated cardiomyopathy; F17.210 Nicotine dependence, cigarettes, uncomplicated; F41.9 Anxiety disorder, unspecified; K21.9 Gastro-esophageal reflux disease without esophagitis; E11.9 Type 2 diabetes mellitus without complications; E87.6 Hypokalemia; Z23 Encounter for immunization; Z86.711 Personal history of pulmonary embolism; Z79.84 Long term (current) use of oral hypoglycemic drugs; Z79.01 Long term (current) use of anticoagulants; Z79.82 Long term (current) use of aspirin
CPT/HCPCS: 70450; 71046; 71275; 80053; 80061; 82805; 82962; 83036; 83735; 83880; 84484; 85025; 85027; 85347; 85379; 85730; 90677; 93005; 93306; 93458; 93799; 93970; 94762; 96365; 96366; 96367; 96375; 99291; C1769; C1894; G0009; Q9967

== ENCOUNTER 2024-12-27 22:06 | Emergency (ER) | payer OTHER, SELFPAY ==
[2024-12-27 22:12] VITALS: BP 92/66
--- NOTE | 2024-12-28 00:32 | ED.MUSCINJ ---
HPI-Injury
General
Chief Complaint: Musculo-Skeletal Complaint
Source: patient
Exam Limitations: none
Time Seen by Provider: 12/28/24 00:17
History of Present Illness-Injury
Initial Injury comments:
64-year-old male presents with swelling and pain to the left foot ongoing for 9 to 10 days. At this time while at work a heavy piece of metal injured his foot. Had slid off a pile and pinched his foot between another object. He had been walking
on it. He had been doing okay however the throbbing got worse today so he presents here for evaluation. He is on Eliquis for history of dvt.
Past History
Past History
ED Past Medical History: GERD, HTN, Psychiatric (Anxiety) and Other (DVT, cataracts)
ED Past Surgical History: None
Social History
Tobacco: Smoker
Alcohol: Daily
Drug: None
Living: with family
Phy Exam
Physical Exam
Physical Exam:
General: Well-appearing male no acute respiratory distress
HEENT: Normocephalic atraumatic
Musculoskeletal exam: Left foot swollen ecchymotic and tender over the dorsal midfoot. No deformities.
Skin: Blister noted to the dorsal lateral aspect of the left foot no drainage. No surrounding erythema
Vascular: 2+ DP pulse left foot with brisk capillary refill all toes left foot the foot is swollen but soft
Neurologic: Good sensation left foot
Injury Course
Orders/Labs/Results
Orders:
Orders
12/27/24 22:07
Foot, Left 3 View [CR Foot - Left Min 3 Views] Urgent
Comment:
Reason For Exam: injury
12/28/24 00:30
Crutches-Treatment ONCE
Ortho Boot Left- Treatment ONCE
Short or tall?: Short
*Critical Care Note
Total Time (30-74mins, 75-104mins- exclusive of procedures): Not Applicable
Update Note
Update Note:
Left foot injury 9 days ago. Now with swelling and ecchymosis. Compartments are soft. No signs of infectious cause. X-ray demonstrates displaced fractures of the 2nd and 3rd metatarsals. Patient will be given an orthopedic boot with crutches
and then will be advised to follow-up with orthopedics for further evaluation
ED Attending Note
-
Portions of this chart may have been created with voice recognition software.� Occasional wrong word or��sound alike� substitutions may have occurred due to the inherent limitations of voice recognition software.
Discharge Plan
Departure
Patient Disposition: Home (Routine Discharge)
Date of Disposition: 12/28/24
Time of Disposition: 00:36
Patient with high blood pressure during this ER visit?: No
Discharge Problem:
Foot fracture, left
Instructions: Muscle and Bone Pain (DC)
Prescriptions:
No Action
carvedilol 6.25 mg Tablet
6.25 mg PO BID Qty: 60 3RF
spironolactone 25 mg Tablet
12.5 mg PO DAILY Qty: 30 3RF
losartan 25 mg Tablet
25 mg PO BID Qty: 60 3RF
Eliquis 5 mg Tablet
5 mg PO BID Qty: 60 3RF
furosemide 40 mg Tablet
40 mg PO DAILY Qty: 30 3RF
atorvastatin 40 mg Tablet
40 mg PO QPM Qty: 30 3RF
aspirin 81 mg Tablet,Chewable
81 mg PO DAILY Qty: 30 5RF
nicotine 21 mg/24 hr Patch 24 Hour
21 mg transdermal DAILY Qty: 28 3RF
metformin 500 mg tablet
500 mg PO DAILY Qty: 30 3RF
Referrals:
Rupert Shanks MD [Family Provider] -
Kit Robin MD [Active] -
Activity Restrictions/Additional Instructions:
Continue to elevate for swelling. Use boot for support at home crutches to help ambulate. Use Tylenol for pain. Follow-up with orthopedics for further evaluation
Interventions
Interventions:
*Risk Screen - Suicide Last Done: 12/27/24 23:51
*General Assessment Last Done: 12/27/24 23:49
*Neglect/Abuse Screening Last Done: 12/27/24 23:50
*ED COVID-19 Vaccine History Last Done: 12/27/24 23:48
ED-Musculoskeletal Assessment Last Done: 12/27/24 23:33
Discharge Date and Time
Print Language: GERMAN
[2024-12-28] MEDS: PERCOCET 5/325 1 TABLET PO (01:30)
[2024-12-28 01:31] VITALS: BMI 24.1
== END 2024-12-28 01:45 | disposition home or self-care (01) ==
LOC: EMR 22:06
PROVIDERS: EMERGENCY PHYSICIAN Emergency Medicine; FAMILY PHYSICIAN Family Medicine
DX: S92.322A Displaced fracture of second metatarsal bone, left foot, initial encounter for closed fracture (principal); S92.332A Displaced fracture of third metatarsal bone, left foot, initial encounter for closed fracture; W23.1XXA Caught, crushed, jammed, or pinched between stationary objects, initial encounter; Y99.0 Civilian activity done for income or pay; F17.200 Nicotine dependence, unspecified, uncomplicated
CPT/HCPCS: 99283; 73630